=== PATIENT | female | born 1960 | race Caucasian/White ===

== ENCOUNTER → 2020-01-08 09:11 | Outpatient (BNVA) | payer OTHER, SELFPAY | PROVIDERS: PCP Internal Medicine; Referring Provider Internal Medicine; Visit Provider Surgery | DX: Z48.817 Encounter for surgical aftercare following surgery on the skin and subcutaneous tissue (principal); Z48.02 Encounter for removal of sutures | CPT/HCPCS: 99212 ==

== ENCOUNTER → 2020-01-11 15:03 | Outpatient (BNVA) | payer OTHER, SELFPAY | PROVIDERS: PCP Internal Medicine; Visit Provider Physician Assistant | DX: Z48.817 Encounter for surgical aftercare following surgery on the skin and subcutaneous tissue (principal) | CPT/HCPCS: 99212 ==

== ENCOUNTER → 2020-01-17 15:37 | Outpatient (BNVA) | payer OTHER, SELFPAY | PROVIDERS: PCP Internal Medicine; Visit Provider Surgery | DX: K59.00 Constipation, unspecified (principal); Z90.3 Acquired absence of stomach [part of]; Z98.84 Bariatric surgery status; Z71.3 Dietary counseling and surveillance | CPT/HCPCS: 99214 ==

== ENCOUNTER 2020-02-05 11:40 | Outpatient (REF) | payer OTHER, SELFPAY | END 2020-02-05 11:41 | disposition home or self-care (01) | LOC: HO.WFDLDS 11:40 | PROVIDERS: Visit Provider Internal Medicine | DX: Z20.828 Contact with and (suspected) exposure to other viral communicable diseases (principal) | CPT/HCPCS: 0241U; C9803; U0003 ==

== ENCOUNTER → 2020-03-11 08:07 | Outpatient (BNVA) | payer OTHER, SELFPAY | PROVIDERS: PCP Internal Medicine; Referring Provider Internal Medicine; Visit Provider Physician Assistant | DX: K91.2 Postsurgical malabsorption, not elsewhere classified (principal); Z90.3 Acquired absence of stomach [part of]; Z98.84 Bariatric surgery status | CPT/HCPCS: Q3014 ==

== ENCOUNTER → 2020-04-14 08:16 | Outpatient (BNVA) | payer OTHER, SELFPAY | PROVIDERS: PCP Internal Medicine; Visit Provider Dietitian, Registered ==

== ENCOUNTER 2020-04-21 10:59 | Outpatient (REF) | payer OTHER, SELFPAY ==
[2020-04-21 13:53] LABS: MANUAL DIFF FLAG NO
[2020-04-21 13:57] LABS: Basophils Percent Auto 0.5 % (0-2); Eosinophils Absolute Auto 0.2 X10*3/uL (0.0-0.4); Eosinophils Percent Auto 3.5 % (0-4); Hematocrit 38.2 % (37-47); Hemoglobin 12.6 g/dl (12.0-16.0); Imm Gran Abs Auto 0.01 X10*3/uL (0.00-0.03); Imm Gran Pct Auto 0.2 % (0.0-0.4); Lymphocytes Absolute Auto 2.1 X10*3/uL (1.2-4.9); Lymphocytes Percent Auto 36.7 % (20-40); Mean Corpuscular Hemoglobin 31.9 pg (27.0-33.0); Mean Corpuscular Volume 96.7 fL (80-98); Mean Platelet Volume 10.9 fL (9.4-12.3); Monocytes Absolute Auto 0.5 X10*3/uL (0.1-1.2); Monocytes Percent Auto 8.5 % (2-11); Neutrophils Absolute Auto 2.9 X10*3/uL (2.0-8.3); Neutrophils Percent Auto 50.6 % (45-73); Platelet Count 190 X10*3/uL (160-400); Red Blood Count 3.95 X10*6/uL (4.20-5.50); Red Cell Distribution Width 12.2 % (11.0-16.0); White Blood Count 5.8 X10*3/uL (4.8-10.8)
[2020-04-21 14:14] LABS: Estimated Average Glucose 154 mg/dL
[2020-04-21 14:31] LABS: Alanine Aminotransferase 22 U/L (0-31); Albumin Level 3.8 g/dL (3.5-5.0); Alkaline Phosphatase 53 U/L (39-117); Anion Gap 12 (12-20); Aspartate Amino Transferase 21 U/L (5-31); Bilirubin Total 0.4 mg/dL (0.0-1.0); Blood Urea Nitrogen 17 mg/dL (9-16); C Reactive Protein 0.04 mg/dL (< or = 0.50); Calcium 9.1 mg/dL (8.4-10.2); Carbon Dioxide 28 mmol/L (22-29); Chloride 108 mmol/L (96-108); Cholesterol 160 mg/dL; Estimated Glomerular Filt Rate > 60; Glucose Fasting 153 mg/dL (60-99); HDL Cholesterol 73 mg/dL; Iron 97 mcg/dL (30-160); LDL Cholesterol Calculated 76 mg/dl; Percent Iron Saturation 32 % (15-50); Potassium 4.1 mmol/l (3.3-5.1); Sodium 144 mmol/L (135-145); Total Iron Binding Capacity 301 mcg/dL (228-428); Total Protein 6.2 g/dL (6.5-8.0); Triglycerides 56 mg/dL; Unsaturated Iron Binding 204 ug/dL
[2020-04-21 14:34] LABS: Ferritin 64 ng/mL (10-250); Vitamin D 25-OH Total 56.1 ng/mL (>30)
[2020-04-21 15:09] LABS: Folate > 20.0 ng/mL (> or = 4.0); Vitamin B12 933 pg/mL (200-900)
[2020-04-22 17:52] LABS: Insulin Level Total 3.3 uIU/mL
[2020-04-23 11:32] LABS: Calcium (PTHI) 9.3 mg/dL (8.6-10.4); PTHI 40 pg/mL (14-64)
[2020-04-25 00:17] LABS: Zinc 84 mcg/dL (60-130)
[2020-04-25 10:07] LABS: Vitamin B1 17 nmol/L (8-30)
[2020-04-25 23:56] LABS: Vitamin A 39 mcg/dL (38-98)
== END 2020-04-21 11:00 | disposition home or self-care (01) ==
LOC: HO.LAB 10:59
PROVIDERS: PCP Internal Medicine; Visit Provider Physician Assistant
DX: Z01.419 Encounter for gynecological examination (general) (routine) without abnormal findings (principal); E66.01 Morbid (severe) obesity due to excess calories; K91.2 Postsurgical malabsorption, not elsewhere classified; Z98.84 Bariatric surgery status; Z90.3 Acquired absence of stomach [part of]
CPT/HCPCS: 36415; 80053; 80061; 82306; 82607; 82728; 82746; 83036; 83525; 83540; 83970; 84425; 84443; 84590; 84630; 85025; 86140

== ENCOUNTER → 2020-04-22 08:08 | Outpatient (BNVA) | payer OTHER, SELFPAY | PROVIDERS: PCP Internal Medicine; Visit Provider Dietitian, Registered ==

== ENCOUNTER → 2020-05-23 08:13 | Outpatient (BNVA) | payer OTHER, SELFPAY | PROVIDERS: PCP Internal Medicine; Visit Provider Dietitian, Registered ==

== ENCOUNTER → 2020-06-24 09:57 | Outpatient (BNVA) | payer OTHER, SELFPAY | PROVIDERS: PCP Internal Medicine; Visit Provider Internal Medicine | DX: K91.2 Postsurgical malabsorption, not elsewhere classified (principal); Z90.3 Acquired absence of stomach [part of]; Z98.84 Bariatric surgery status; I25.10 Atherosclerotic heart disease of native coronary artery without angina pectoris; I10 Essential (primary) hypertension; E11.8 Type 2 diabetes mellitus with unspecified complications; R94.09 Abnormal results of other function studies of central nervous system | CPT/HCPCS: 99212 ==

== ENCOUNTER → 2020-07-22 11:24 | Outpatient (BNVA) | payer OTHER, SELFPAY | PROVIDERS: PCP Internal Medicine; Visit Provider Dietitian, Registered | DX: Z98.84 Bariatric surgery status (principal) | CPT/HCPCS: 97803 ==

== ENCOUNTER → 2020-08-05 13:52 | Outpatient (BNVA) | payer OTHER, SELFPAY | PROVIDERS: PCP Internal Medicine; Visit Provider Physician Assistant | DX: K91.2 Postsurgical malabsorption, not elsewhere classified (principal); Z90.3 Acquired absence of stomach [part of]; Z98.84 Bariatric surgery status | CPT/HCPCS: 99212 ==

== ENCOUNTER → 2020-08-18 10:51 | Outpatient (BNVA) | payer OTHER, SELFPAY | PROVIDERS: PCP Internal Medicine; Visit Provider Dietitian, Registered | DX: Z90.3 Acquired absence of stomach [part of] (principal) | CPT/HCPCS: 97803 ==

== ENCOUNTER → 2021-05-07 10:18 | Outpatient (BNVA) | payer OTHER, SELFPAY | PROVIDERS: PCP Internal Medicine; Visit Provider Physician Assistant Surgical | DX: Z13.89 Encounter for screening for other disorder (principal) ==

== ENCOUNTER → 2021-07-07 09:31 | Outpatient (BNVA) | payer OTHER, SELFPAY | PROVIDERS: PCP Internal Medicine; Visit Provider Internal Medicine | DX: I25.10 Atherosclerotic heart disease of native coronary artery without angina pectoris (principal); I10 Essential (primary) hypertension; R94.09 Abnormal results of other function studies of central nervous system; E11.8 Type 2 diabetes mellitus with unspecified complications; Z98.84 Bariatric surgery status | CPT/HCPCS: 93005; 99212 ==

== ENCOUNTER 2021-10-02 23:00 | Emergency (ER) | payer OTHER, SELFPAY ==
--- NOTE | ~2021-10-02 | CT_ITS ---
EXAMINATION: CT HEAD WITHOUT CONTRAST CT CERVICAL SPINE WITHOUT CONTRAST CLINICAL INFORMATION: Fall. COMPARISON: None. TECHNIQUE: Imaging was performed from the skull base to vertex without intravenous administration of contrast. In addition, helical noncontrast CT imaging was acquired through the cervical spine and source images were reviewed along with axial reconstructions and sagittal and coronal MPRs. [This CT examination was performed using dose optimization techniques as appropriate, variously including the following: *Automated exposure control *Adjustment of mA and/or kV according to patient size (this includes techniques or standardized protocols for targeted exams where dose is matched to indication/reason for exam; i.e. extremities or head) *Use of iterative reconstruction technique] DLP: 888 mGy-cm FINDINGS: HEAD: No intracranial mass, hemorrhage, or midline shift is visualized. The ventricles and sulci are proportional. No extra-axial collections are identified. The paranasal sinuses and mastoid air cells are well aerated. CERVICAL SPINE: There is no evidence of acute cervical spine fracture. Vertebral bodies remain normal in height. Cervical vertebrae have normal alignment. There is multilevel degenerative spondylosis of the cervical spine with disc height narrowing and endplate spurs and facet joint arthrosis No pre- or paravertebral soft tissue abnormality is identified. Limited assessment of the lung apices is unremarkable. CT/CT head/brain wo con IMPRESSION: 1. No acute intracranial pathology. 2. No CT evidence of acute cervical spine fracture or traumatic subluxation
--- NOTE | ~2021-10-02 | CT_ITS ---
EXAMINATION: CT HEAD WITHOUT CONTRAST CT CERVICAL SPINE WITHOUT CONTRAST CLINICAL INFORMATION: Fall. COMPARISON: None. TECHNIQUE: Imaging was performed from the skull base to vertex without intravenous administration of contrast. In addition, helical noncontrast CT imaging was acquired through the cervical spine and source images were reviewed along with axial reconstructions and sagittal and coronal MPRs. [This CT examination was performed using dose optimization techniques as appropriate, variously including the following: *Automated exposure control *Adjustment of mA and/or kV according to patient size (this includes techniques or standardized protocols for targeted exams where dose is matched to indication/reason for exam; i.e. extremities or head) *Use of iterative reconstruction technique] DLP: 888 mGy-cm FINDINGS: HEAD: No intracranial mass, hemorrhage, or midline shift is visualized. The ventricles and sulci are proportional. No extra-axial collections are identified. The paranasal sinuses and mastoid air cells are well aerated. CERVICAL SPINE: There is no evidence of acute cervical spine fracture. Vertebral bodies remain normal in height. Cervical vertebrae have normal alignment. There is multilevel degenerative spondylosis of the cervical spine with disc height narrowing and endplate spurs and facet joint arthrosis No pre- or paravertebral soft tissue abnormality is identified. Limited assessment of the lung apices is unremarkable. CT/CT cervical spine wo con IMPRESSION: 1. No acute intracranial pathology. 2. No CT evidence of acute cervical spine fracture or traumatic subluxation
[2021-10-02 23:03] VITALS: BP 108/72; BP 121/53; PULSE 66; PULSE 71; RESP 22; TEMP 36.6; O2SAT 98; BMI 24.5
--- NOTE | 2021-10-02 23:05 | ED.FALL ---
HPI - Fall General Chief Complaint: Fall Stated Complaint: fall Time Seen by Provider: 10/02/21 23:04 Source: patient Mode of arrival: ambulatory Limitations: no limitations History of Present Illness HPI Narrative: Patient legally blind was walking outside lost balance from walking on uneven sidewalk landing on her back of the head and the left side of forehead came here with laceration on the L frontal area. No loss of consciousness no other injuries Related Data Home Medications Medication Instructions Recorded Confirmed albuterol sulfate 90 mcg/actuation 2 puff inhalation Q6H PRN 01/08/20 07/07/21 aerosol inhaler (ProAir HFA) biotin 10,000 mcg capsule mcg PO 01/08/20 07/07/21 calcium carbonate 600 mg-vitamin cap PO 01/08/20 07/07/21 D3 12.5 mcg (500 unit) capsule (Calcium 600 with Vitamin D3) ketorolac 0.5 % eye drops 1 drp ophthalmic (eye) QID 01/08/20 07/07/21 melatonin 10 mg capsule 10 mg PO BEDTIME PRN 01/08/20 07/07/21 montelukast 10 mg tablet 10 mg PO BEDTIME 01/08/20 07/07/21 multivitamin 1 tab PO DAILY 01/08/20 07/07/21 omeprazole 40 mg capsule,delayed 40 mg PO DAILY 01/08/20 07/07/21 release propranolol 10 mg tablet 10 mg PO BID 01/08/20 07/07/21 trazodone 50 mg tablet 25 mg PO DAILY 06/24/20 07/07/21 Previous Rx's Medication Instructions Recorded food supplemt, lactose-reduced See Rx Instructions PO BID #19,800 08/29/20 (Ensure MAX Protein) mL rosuvastatin 40 mg tablet 40 mg PO DAILY #90 tabs 04/03/21 amlodipine 2.5 mg tablet (Norvasc) 2.5 mg PO DAILY #90 tabs 07/07/21 Allergies Allergy/AdvReac Type Severity Reaction Status Date / Time Opioids - Morphine Analogues Allergy Severe ANAPHYLAXIS Verified 07/07/21 09:45 [OPIOIDS - MORPHINE ANALOGUES] iodine [IODINE] Allergy Intermediate RASH Verified 07/07/21 09:45 dulaglutide [Trulicity] Allergy Unknown Unknown Verified 07/07/21 09:45 hydrocodone [Vicodin] Allergy Unknown Unknown Verified 07/07/21 09:45 meperidine [Demerol] Allergy Unknown Unknown Verified 07/07/21 09:45 oxycodone [Percocet] Allergy Unknown Unknown Verified 07/07/21 09:45 povidone-iodine [Betadine] Allergy Unknown Unknown Verified 07/07/21 09:45 Penicillins [PENICILLINS] AdvReac Severe VOMITING Verified 07/07/21 09:45 Review of Systems Review of Systems: Yes all other systems are reviewed and are negative [facility] Past Medical History Medical History Abnormal tilt table test Arrhythmia Asthma Atherosclerotic cardiovascular disease Blindness of right eye Essential hypertension History of ectopic History of sleep apnea HTN (hypertension) Infertility Intestinal malabsorption following gastrectomy Panic attacks Type 2 diabetes mellitus Type 2 diabetes mellitus with unspecified complications Urinary, incontinence, stress female Surgical History H/O ovarian cystectomy History of excision of pilonidal cyst History of foot surgery History of nasal septoplasty History of repair of hiatal hernia History of sleeve gastrectomy History of varicose vein stripping Hx of excision of dermoid cyst S/P laparoscopic sleeve gastrectomy Family History Family History Father Diabetes Lymphoma Mother Diabetes Dementia Heart disease Legally blind Brother Diabetes Brother No problems noted. Sister Diabetes Son Asthma Spina bifida aperta of cervical spine Social History Social History Alcohol intake: current Alcohol intake frequency: holidays/special occasions only Patient Tobacco Use Status: Never used Tobacco Use of substances other than those prescribed or required for medical reasons: No Advance Directives: No Advance Directives Information Provided: No Physical Exam Vital Signs: Vital Signs: Last Vital Signs Temp 97.8 F 10/02/21 23:07 Pulse 67 10/02/21 23:07 Resp 14 10/02/21 23:07 BP 121/53 L 10/02/21 23:07 Pulse Ox 99 10/02/21 23:07 O2 Del Method 10/02/21 23:07 BMI result Body Mass Index 24.5 Appearance: Alert. No acute distress. Eyes: Legally blind ENT: Pharynx normal. Oral Mucosa moist Neck: Normal inspection. Neck supple. No midline tenderness cervical collar in place CVS: Normal heart rate and rhythm. Pulses normal. Respiratory: No respiratory distress. Equal air entry bilateral, no wheezing/rales/rhonchi Abdomen: Soft and nontender. Bowel sounds are present, no mass palpable, no CVA tenderness Skin: Skin warm and dry. Normal skin color. Normal skin turgor. Extremities: No lower extremity edema. No calf tenderness Neuro: Oriented X 3. No motor deficit. No sensory deficit. HEENT: Face images: 1. 4 cm laceration left forehead Procedures Laceration Laceration 1: Site: face (Forehead) Side (If applicable): left Size (cm): 4 Description: linear Depth: simple, single layer Local Anesthetic: lidocaine 1% Amount of anesthesia used (mL): 2 Skin layer closed with: nylon Size (cm): 5-0 Number of sutures: 7 Technique: simple, interrupted MDM - Fall MDM Narrative Medical decision making narrative: Patient status post mechanical fall head CT and C-spine negative came with superficial laceration left forehead which was sutured patient ambulate in the ER where discharge patient Discharge Plan Discharge Clinical Impression: Fall, Laceration of face Patient Disposition: Home, Self-Care Instructions: Laceration (ED), Fall Prevention (ED) Additional Instructions: Local care as advised Suture removal in 5-7 days Prescriptions: No Action Ensure MAX Protein Liquid See Rx Instructions PO BID Qty: 57320 6RF Rx Instructions: Drink 1 shake PO 2 times a day; rosuvastatin 40 mg tablet 40 mg PO DAILY Qty: 90 3RF trazodone 50 mg tablet 25 mg PO DAILY amlodipine [Norvasc] 2.5 mg tablet 2.5 mg PO DAILY Qty: 90 3RF montelukast 10 mg tablet 10 mg PO BEDTIME albuterol sulfate [ProAir HFA] 90 mcg/actuation HFA aerosol inhaler 2 puff inhalation Q6H PRN omeprazole 40 mg capsule,delayed release(DR/EC) 40 mg PO DAILY melatonin 10 mg capsule 10 mg PO BEDTIME PRN multivitamin Tablet 1 tab PO DAILY calcium carbonate-vitamin D3 [Calcium 600 with Vitamin D3] 600 mg(1,500mg) -500 unit capsule PO propranolol 10 mg tablet 10 mg PO BID biotin 10,000 mcg capsule PO ketorolac 0.5 % drops 1 drp ophthalmic (eye) QID
[2021-10-02 23:07] VITALS: BP 121/53; PULSE 67; RESP 14; TEMP 36.6; O2SAT 99
--- NOTE | 2021-10-02 23:14 | PC.NURSE ---
Pt came in with EMS after falling on uneven pavement. Pt is visually impaired at baseline and stated she always has a little bit of dizziness. A 2 laceration is noted on the forehead with bleeding controlled, there were napkins saturated with blood wrapped to her head. EMS applied a C-Collar on scene. Pt is A&Ox4 with GCS of 15. IV inserted, nursing resident applied, and pt is in CT scan at this moment.
[2021-10-03] MEDS: Lidocaine HCl 1 % MPF 5 ML VIAL INFILTRATI (00:26)
--- NOTE | 2021-10-03 00:36 | PC.NURSE ---
Pt laceration sutured by , 7 sutures total. Bacitracin and bandaid applied, care instructions provided.
[2021-10-03 00:49] VITALS: BP 148/88; PULSE 65; RESP 12
== END 2021-10-03 01:01 | disposition home or self-care (01) ==
PROVIDERS: Emergency Provider Internal Medicine
DX: S01.81XA Laceration without foreign body of other part of head, initial encounter (principal); W01.198A Fall on same level from slipping, tripping and stumbling with subsequent striking against other object, initial encounter; H54.8 Legal blindness, as defined in USA; Y93.01 Activity, walking, marching and hiking; Y92.480 Sidewalk as the place of occurrence of the external cause; Y99.9 Unspecified external cause status
CPT/HCPCS: 12013; 70450; 72125; 99284

== ENCOUNTER → 2022-09-01 12:21 | Outpatient (BNVA) | payer OTHER, SELFPAY | PROVIDERS: Visit Provider Internal Medicine | DX: I25.10 Atherosclerotic heart disease of native coronary artery without angina pectoris (principal); I10 Essential (primary) hypertension; E11.8 Type 2 diabetes mellitus with unspecified complications; R94.09 Abnormal results of other function studies of central nervous system; Z98.84 Bariatric surgery status | CPT/HCPCS: 93005; 99212 ==

== ENCOUNTER 2023-07-26 10:14 | Outpatient (REF) | payer OTHER, SELFPAY ==
[2023-07-26 12:35] LABS: Anion Gap 11 (12-20); Blood Urea Nitrogen 17 mg/dL (9-16); Calcium 9.4 mg/dL (8.4-10.2); Carbon Dioxide 29 mmol/L (22-29); Chloride 106 mmol/L (96-108); Estimated Glomerular Filt Rate > 60; Glucose Random 125 mg/dL (60-115); Potassium 3.9 mmol/L (3.3-5.1); Sodium 142 mmol/L (135-145)
== END 2023-07-26 10:15 | disposition home or self-care (01) ==
LOC: HO.WFDLDS 10:14
PROVIDERS: Visit Provider Nurse Practitioner Family
DX: I10 Essential (primary) hypertension (principal)
CPT/HCPCS: 36415; 80048

== ENCOUNTER 2023-07-28 13:34 | Outpatient (AMB) | payer OTHER, SELFPAY ==
[2023-07-28 14:00] VITALS: BP 120/60; PULSE 58; O2SAT 98; BMI 30.7
--- NOTE | 2023-07-28 14:00 | A.OFFVIS_ITS ---
Vital Signs 07/28/23 14:00 Height 5 ft 1 in Weight 162 lb 4.163 oz BMI 30.7 BP 120/60 Blood Pressure Location Lt brachial Position Sitting Pulse 58 Pulse Source Pulse Oximeter Pulse Oximetry (%) 98 Oxygen Delivery Method Room Air Intake Visit Reasons: Hypertension Intake Note: pt is concern for BP no chest pain Allergies Opioids - Morphine Analogues [OPIOIDS - MORPHINE ANALOGUES] Allergy (Severe, Verified 09/01/22 12:51) ANAPHYLAXIS iodine [IODINE] Allergy (Intermediate, Verified 09/01/22 12:51) RASH dulaglutide [Trulicity] Allergy (Unknown, Verified 09/01/22 12:51) Unknown hydrocodone [Vicodin] Allergy (Unknown, Verified 09/01/22 12:51) Unknown meperidine [Demerol] Allergy (Unknown, Verified 09/01/22 12:51) Unknown oxycodone [Percocet] Allergy (Unknown, Verified 09/01/22 12:51) Unknown povidone-iodine [Betadine] Allergy (Unknown, Verified 09/01/22 12:51) Unknown Penicillins [PENICILLINS] Adverse Reaction (Severe, Verified 09/01/22 12:51) VOMITING Medication List - Last Reviewed 07/28/23 by Martine Dickens albuterol sulfate 90 mcg/actuation (ProAir HFA) 2 puffs inhalation Q6H PRN amlodipine 5 mg PO DAILY biotin mcg PO calcium carbonate-vitamin D3 600 mg-12.5 mcg (500 unit) (Calcium 600 with Vitamin D3) caps PO fluoxetine 10 mg PO DAILY food supplemt, lactose-reduced (Ensure MAX Protein oral liquid) Drink 1 shake PO 2 times a day; ketorolac 0.5% 1 drp ophthalmic (eye) QID losartan 50 mg PO DAILY melatonin 10 mg PO BEDTIME PRN mirabegron ER 50 mg PO DAILY montelukast 10 mg PO BEDTIME multivitamin 1 tab PO DAILY omeprazole 40 mg PO DAILY propranolol 10 mg PO ONCE rosuvastatin 40 mg PO DAILY trazodone 25 mg PO DAILY HPI Comments Details: Cheyenne returns for follow-up regarding her HTN. She reports her SBPs have been 120-180s on and off recently. She has had some left sided chest pains with left arm numbess. She reports it is a mild pain and is at rest and exertion. 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 Blindness of right eye History of ectopic Panic attacks Urinary, incontinence, stress female Infertility Asthma History of sleep apnea Arrhythmia HTN (hypertension) Type 2 diabetes mellitus Surgical History S/P laparoscopic sleeve gastrectomy History of repair of hiatal hernia History of sleeve gastrectomy History of foot surgery History of varicose vein stripping History of nasal septoplasty H/O ovarian cystectomy Hx of excision of dermoid cyst History of excision of pilonidal cyst Family History Father Diabetes Lymphoma Mother Diabetes Dementia Heart disease Legally blind Brother Diabetes Brother No problems noted. Sister Diabetes Son Asthma Spina bifida aperta of cervical spine Social History Alcohol intake: current Alcohol intake frequency: holidays/special occasions only Patient Tobacco Use Status: Never used Tobacco Review of Systems Const Denies weakness ENT Denies dizziness Card Denies chest pain, Denies chest pain with activity, Denies syncope, Denies rapid heart rate, Denies pedal edema, Denies edema, Denies leg edema, Denies lightheadedness, Denies palpitations, Denies dyspnea, Denies dyspnea on exertion and Denies orthopnea Resp Denies cough, Denies dyspnea and Denies dyspnea on exertion GI Denies hematochezia and Denies change in stool character Musc Denies abnormal gait, Denies muscle cramps, Denies muscle weakness, Denies numbness, Denies radiating pain into limb and Denies tingling Neuro Denies abnormal gait, Denies dizziness, Denies syncope, Denies numbness, Denies tingling and Denies weakness Endo Denies palpitations Physical Exam Vital Signs: Last Vital Signs Pulse 58 07/28/23 14:00 BP 120/60 07/28/23 14:00 Pulse Ox 98 07/28/23 14:00 Oxygen Delivery Method Room Air 07/28/23 14:00 BMI result Body Mass Index 30.7 Const General: healthy appearing and no acute distress Orientation/consciousness: patient oriented x3 HEENT Head: Yes normal to inspection Eyes General: appearance normal, both eyes and all related structures Neck Neck: Yes normal visual inspection Chest Chest palpation & inspection: normal inspection of the chest Resp Effort & Inspection: normal respiratory effort Auscultation: clear to auscultation bilaterally Cardio Jugular venous distension: no JVD Palpation: normal PMI Rate: regular rate Rhythm: regular rhythm Heart sounds: S1 normal heart sound present, S2 normal heart sound present, no click, no gallops, no murmurs and no rubs GI Inspection: Yes normal to inspection Palpation (GI): Soft to palpation Skin General skin exam: no rashes or lesions noted Neuro General: patient oriented x3 Extrem General: Yes normal to inspection Psych Appearance: grossly normal Office Procedures EKG Details: EKG today. Sinus Bradycardia. Rate 56 bpm. QTS 74ms. QTc 447ms. VA 138ms. [id number], Complete Assessment & Plan Assessment & Plan (1) Atherosclerotic cardiovascular disease: Code(s): I25.10 - Atherosclerotic heart disease of [place] coronary artery without angina pectoris Category: Medical Plan: On statins. Will get stress test to assess chest pains for ischemia. (2) Essential hypertension: Code(s): I10 - Essential (primary) hypertension Category: Medical Plan: Blood pressure today within range. During discussion she noticed she may have just taken her medications when she took her blood pressures. Advised to write down when she took her medication and time of blood pressure reading to evaluate if there needs to be an adjustment in medicaitons. (3) Chest pain: Code(s): R07.9 - Chest pain, unspecified Category: Medical Plan: Will get stress test. Orders: Orders CA echo transthoracic complete 07/28/23 I10 - Essential (primary) hypertension, I25.10 - Atherosclerotic heart disease of [place] coronary artery without angina pectoris, R07.9 - Chest pain, unspecified NM cardiolite stress test 07/28/23 I10 - Essential (primary) hypertension, I25.10 - Atherosclerotic heart disease of [place] coronary artery without angina pectoris, R07.9 - Chest pain, unspecified CA stress test 07/28/23 I10 - Essential (primary) hypertension, I25.10 - Atherosclerotic heart disease of [place] coronary artery without angina pectoris, R07.9 - Chest pain, unspecified Coding Level of Care Code Est Pt Level 3 (37627) Diagnoses Atherosclerotic cardiovascular disease I25.10 Essential hypertension I10 Chest pain R07.9 CPT Codes EKG - CPT: 70256-[id number], Complete ([id number])
== END 2023-07-28 14:55 | disposition home or self-care (01) ==
PROVIDERS: PCP Student in an Organized Health Care Education/Training Program; Visit Provider Nurse Practitioner
DX: I25.10 Atherosclerotic heart disease of native coronary artery without angina pectoris (principal); I10 Essential (primary) hypertension; R07.9 Chest pain, unspecified
CPT/HCPCS: 93010; 99213

== ENCOUNTER → 2023-07-28 13:34 | Outpatient (BNVA) | payer OTHER, SELFPAY | PROVIDERS: PCP Student in an Organized Health Care Education/Training Program; Visit Provider Nurse Practitioner | DX: I25.10 Atherosclerotic heart disease of native coronary artery without angina pectoris (principal); I10 Essential (primary) hypertension; R07.9 Chest pain, unspecified; R00.1 Bradycardia, unspecified | CPT/HCPCS: 93005; 99212 ==

== ENCOUNTER → 2023-08-16 12:36 | Outpatient (REF) | payer OTHER, SELFPAY ==
--- NOTE | 2023-08-16 12:38 | CA_ITS ---
Transthoracic Echocardiogram Patient (Last, First, Middle): Cheyenne Snider, Gender: Female Date of : 1960 Age: 62 Procedure Date: 08/16/2023 Procedure Type: Transthoracic Echocardiogram Location: OP Height: 154.94 cm Weight: 71.22 kg BSA: 1.70 m2 Heart Rate: bpm BP: 118 / 60 mmHg Systems Software Engineer: Referring MD: Joslyn Brito FILM SPOOLER Symptoms: R07.9 - Chest pain, unspecified Study Quality: Adequate w contrast ECG Rhythm: Sinus Conclusions: - The left ventricular systolic function is normal. The calculated ejection fraction is 69% by biplane method. - Evidence suggests grade II (moderate) diastolic dysfunction. - No obvious valvular pathology seen on this study. Findings Procedure Information Contrast agent, definity, is being given per protocol without apparent complications. Left Ventricle Normal left ventricular cavity size. There is normal left ventricular wall thickness. The left ventricular systolic function is normal. The calculated ejection fraction is 69% by biplane method. There is no evidence of regional wall motion abnormalities. Evidence suggests grade II (moderate) diastolic dysfunction. Right Ventricle Mildly increased right ventricular cavity size. There is normal right ventricular systolic function. Atria Both atria are normal in size. Aortic Valve There is a normal trileaflet aortic valve. There is no aortic valve stenosis. There is trace (trivial) aortic valve regurgitation. Mitral Valve The mitral valve appears normal. There is no mitral valve regurgitation. There is no mitral valve stenosis. Pulmonic Valve The pulmonic valve is likely normal. Tricuspid Valve There is trace tricuspid valve regurgitation. There is no evidence of pulmonary hypertension. Great Vessels The asc aorta is normal in size. Venous The inferior vena cava is normal in size and collapses greater than 50% with inspiration. Pericardium/Pleural There is no evidence of pericardial effusion. Prior Study Comparison Changes noted compared to prior study dated: 10/26/2019. Diastolic dysfunction noted. Recommendations, Care & Conclusions No obvious valvular pathology seen on this study. Measurements 2D Linear Measurements IVSd: 1.02 0.6-0.9/0.6-1.0 cm LVIDd: 4.63 3.9-5.3/4.2-5.9 cm LVIDd Index: 2.72 2.4-3.2/2.2-3.1 cm/m2 LVIDs: 3.04 2.0-3.6 cm LVPWd: 0.90 0.7-1.1 cm Ao Root: 3.30 2.1-3.5 cm LA Diam: 4.00 2.7-3.8/3.0-4.0 cm LAIDs Index: 2.35 1.5-2.3 cm/m2 LV Mass: 188.36 67-162/88-224 g LV Mass Index: 110.80 43-95/49-115 g/m2 LVOT Diam: 2.00 3.0+(-)1.3 cm 2D Systolic Function EF 4C: 67.20 >55% EF 2C: 68.30 >55% EF BiP: 68.50 >55% Mitral Valve MV Pk E: 1.10 MV PK A: 0.63 MV Decel Time: 197.00 E/A: 1.70 E'Lateral: 7.83 E'Medial: 4.90 E/E' Med: 22.40 E/E' Lat: 14.00 PHT: 58.00 MVA PHT: 3.79 Decel Mclean: 5.59 Aortic Valve AoV Pk Maximo: 1.48 AoV Mn Maximo: 0.92 AoV VTI: 0.37 AoV Pk Grad: 9.00 Aov Mn Grad: 4.00 NOAM Cont.VTI: 2.04 LVOT LVOT Pk Maximo: 0.95 LVOT Mn Maximo: 0.60 LVOT VTI: 0.24 LVOT Pk Grad: 4.00 LVOT Mn Grad: 2.00 LVOT Diam: 2.00 LVOT Area: 3.14 Diastolic Function MV Pk E: 1.10 MV Pk A: 0.63 E/A: 1.70 E'Medial: 4.90 E/E' Med: 22.40 E' Laterial: 7.83 E/E' Lat: 14.00 Right Ventricle TAPSE (mm): 30.90 TVS' Maximo: 13.30 Tricuspid Valve TR Pk Maximo: 2.22 TR Pk Grad: 20.00 Great Vessels Aorta Ao Root-2D: 3.30 2.0-3.7 cm Ao Asc: 3.20 2.1-3.4 cm Pulmonary Valve PV Pk Maximo: 0.91 Peak PV Grad: 3.00 Updated in Other Vendor System with Status of Final Juan Antonio Wilson MD electronically signed on 08/17/2023 12:01:11 PM with status of Final
== END ==
LOC: HO.CARD 12:36
PROVIDERS: PCP Student in an Organized Health Care Education/Training Program; Visit Provider Nurse Practitioner
DX: R07.9 Chest pain, unspecified (principal); I25.10 Atherosclerotic heart disease of native coronary artery without angina pectoris; I10 Essential (primary) hypertension
CPT/HCPCS: 93306; Q9957

== ENCOUNTER → 2023-08-16 12:38 | Outpatient (BNV) | payer OTHER, SELFPAY | PROVIDERS: PCP Student in an Organized Health Care Education/Training Program; Visit Provider Internal Medicine | DX: R07.9 Chest pain, unspecified (principal); I51.9 Heart disease, unspecified | CPT/HCPCS: 93306 ==

== ENCOUNTER 2023-12-02 21:33 | Emergency (ER) | payer OTHER, SELFPAY ==
[2023-12-02 21:43] VITALS: BP 121/57; BP 154/76; PULSE 65; PULSE 86; RESP 18; TEMP 36.4; O2SAT 97; BMI 31.2
--- NOTE | 2023-12-02 21:49 | MHC.EDTECH ---
PT HAS TWO BELONGINGS BAGS IN POD LAUNDRY CLOSET. ONE RED SUITCASE, ONE PATIENT BELONGING BAG.
--- NOTE | 2023-12-03 00:03 | ED_ITS ---
HPI - Psych General Chief Complaint: Psychiatric Symptoms Stated Complaint: sect.12, mother recently passed Time Seen by Provider: 12/02/23 22:10 Source: EMS History of Present Illness ED Provider: Kandace Roe PA-C HPI Narrative: 63-year-old morbidly obese female with history of hypertension, diabetes and COPD presents with SI. Patient recently lost her mother 3 weeks ago, since she has been binge drinking. She has also been exhibiting high-risk behaviors, including driving while under the influence with children in the vehicle. To note, the patient is also legally blind in the right eye. Patient was seen in the community by the behavioral health team, she presents to our emergency department as a section 12. She will be a bed search. Related Data Home Medications ?Medication ?Instructions ?Recorded ?Confirmed albuterol sulfate 90 mcg/actuation 2 puff inhalation Q6H PRN 01/08/20 09/01/22 aerosol inhaler (ProAir HFA) biotin 10,000 mcg capsule mcg PO 01/08/20 09/01/22 calcium carbonate 600 mg-vitamin cap PO 01/08/20 09/01/22 D3 12.5 mcg (500 unit) capsule (Calcium 600 with Vitamin D3) ketorolac 0.5 % eye drops 1 drp ophthalmic (eye) QID 01/08/20 09/01/22 melatonin 10 mg capsule 10 mg PO BEDTIME PRN 01/08/20 09/01/22 montelukast 10 mg tablet 10 mg PO BEDTIME 01/08/20 09/01/22 multivitamin 1 tab PO DAILY 01/08/20 09/01/22 omeprazole 40 mg capsule,delayed 40 mg PO DAILY 01/08/20 09/01/22 release trazodone 50 mg tablet 25 mg PO DAILY 06/24/20 09/01/22 amlodipine 5 mg tablet 5 mg PO DAILY 09/01/22 09/01/22 mirabegron 50 mg tablet,extended 50 mg PO DAILY 07/14/23 release 24 hr fluoxetine 10 mg capsule 10 mg PO DAILY 07/28/23 Previous Rx's ?Medication ?Instructions ?Recorded food supplemt, lactose-reduced See Rx Instructions PO BID #19,800 08/29/20 (Ensure MAX Protein oral liquid) mL rosuvastatin 40 mg tablet 40 mg PO DAILY #90 tabs 04/03/21 propranolol 10 mg tablet 10 mg PO BID 90 days #180 tabs 08/18/23 losartan 50 mg tablet 50 mg PO DAILY #90 tabs 11/22/23 Allergies Allergy/AdvReac Type Severity Reaction Status Date / Time Opioids - Morphine Analogues Allergy Severe ANAPHYLAXIS Verified 12/02/23 21:51 [OPIOIDS - MORPHINE ANALOGUES] iodine [IODINE] Allergy Intermediate RASH Verified 12/02/23 21:51 dulaglutide [Trulicity] Allergy Unknown Unknown Verified 12/02/23 21:51 hydrocodone [Vicodin] Allergy Unknown Unknown Verified 12/02/23 21:51 meperidine [Demerol] Allergy Unknown Unknown Verified 12/02/23 21:51 oxycodone [Percocet] Allergy Unknown Unknown Verified 12/02/23 21:51 povidone-iodine [Betadine] Allergy Unknown Unknown Verified 12/02/23 21:51 Penicillins [PENICILLINS] AdvReac Severe VOMITING Verified 12/02/23 21:51 Review of Systems Review of Systems: Yes all other systems are reviewed and are negative FOR[facility]LY [facility] Past Medical History Attestation statement: The following information was validated with the patient. Medical History Chest pain Abnormal tilt table test Essential hypertension Type 2 diabetes mellitus with unspecified complications Atherosclerotic cardiovascular disease Intestinal malabsorption following gastrectomy Blindness of right eye History of ectopic Panic attacks Urinary, incontinence, stress female Infertility Asthma History of sleep apnea Arrhythmia HTN (hypertension) Type 2 diabetes mellitus Surgical History S/P laparoscopic sleeve gastrectomy History of repair of hiatal hernia History of sleeve gastrectomy History of foot surgery History of varicose vein stripping History of nasal septoplasty H/O ovarian cystectomy Hx of excision of dermoid cyst History of excision of pilonidal cyst Family History Family History Father Diabetes Lymphoma Mother Diabetes Dementia Heart disease Legally blind Brother Diabetes Brother No problems noted. Sister Diabetes Son Asthma Spina bifida aperta of cervical spine Social History Social History Alcohol intake: current Alcohol intake frequency: holidays/special occasions only Patient Tobacco Use Status: Never used Tobacco Advance Directives: No Advance Directives Information Provided: No Do you have a plan to hurt others: No Plan Physical Exam Vital Signs: Vital Signs: Last Vital Signs Temp 97.6 F 12/02/23 21:43 Pulse 65 12/02/23 21:43 Resp 18 12/02/23 21:43 BP 121/57 L 12/02/23 21:43 Pulse Ox 97 12/02/23 21:43 O2 Del Method Room Air 12/02/23 21:43 BMI result Body Mass Index 31.2 Const: Other: Awake Orientation/consciousness: patient oriented x3 Resp: Effort & Inspection: normal respiratory effort Cardio: Other: Normal peripheral perfusion Skin: Other: Warm dry no rash Neuro: Other: Legally blind right eye General: patient oriented x3 and no focal motor deficits Psych: Other: Cooperative in the ER Medical Decision Making Medical Decision Making MDM Narrative: 63-year-old morbidly obese female with history of hypertension, diabetes and COPD presents with SI. Patient recently lost her mother 3 weeks ago, since she has been binge drinking. She has also been exhibiting high-risk behaviors, including driving while under the influence with children in the vehicle. To n otruthy, the patient is also legally blind in the right eye. Patient was seen in the community by the behavioral health team, she presents to our emergency department as a section 12. She will be a bed search. Problem: Diabetes History: Per EMS I have considered the following differential diagnoses: SI, HI, drug/alcohol intoxication, decompensated psychiatric illness Plan: Patient presents as a section 12, she will be a bed search. Screening basic labs, serum Ethanol and U tox. I have independently reviewed the following tests: Labs: No leukocytosis, not anemic, no electrolyte abnormality, ethanol and drug screen pending Discharge Plan Discharge Clinical Impression: Suicidal ideation Patient Disposition: Still a Patient Prescriptions: No Action Ensure MAX Protein Liquid See Rx Instructions PO BID Qty: 6RF Rx Instructions: Drink 1 shake PO 2 times a day; rosuvastatin 40 mg tablet 40 mg PO DAILY Qty: 90 3RF mirabegron 50 mg tablet extended release 24 hr 50 mg PO DAILY propranolol 10 mg tablet 10 mg PO BID 90 Days Qty: 180 1RF losartan 50 mg tablet 50 mg PO DAILY Qty: 90 3RF trazodone 50 mg tablet 25 mg PO DAILY montelukast 10 mg tablet 10 mg PO BEDTIME albuterol sulfate [ProAir HFA] 90 mcg/actuation HFA aerosol inhaler 2 puff inhalation Q6H PRN omeprazole 40 mg capsule,delayed release(DR/EC) 40 mg PO DAILY melatonin 10 mg capsule 10 mg PO BEDTIME PRN multivitamin Tablet 1 tab PO DAILY calcium carbonate-vitamin D3 [Calcium 600 with Vitamin D3] 600 mg(1,500mg) - 500 unit capsule PO biotin 10,000 mcg capsule PO ketorolac 0.5 % drops 1 drp ophthalmic (eye) QID amlodipine 5 mg tablet 5 mg PO DAILY fluoxetine 10 mg capsule 10 mg PO DAILY Interventions: [place]-Suicide Risk Severity Scale Last Done: 12/02/23 21:56 Print Language: Azeri
--- NOTE | 2023-12-03 00:08 | PC.NURSE ---
Took report from off-going RN at 2300 hrs. Pt is a 63 y/o female who is here via EMS on a section 12. Pt is calm and cooperative, easily arousable with verbal stimulli. Mothr recently , has been endorsing poor choices, recent DUI with children in the car. Has been evaluated by N and is currently a bed search. Will continue to monitor for changes.
[2023-12-03 03:01] LABS: MANUAL DIFF FLAG NO
[2023-12-03 03:04] LABS: Basophils Absolute Auto 0.1 X10*3/uL (0.0-0.2); Basophils Percent Auto 0.7 % (0-2); Eosinophils Absolute Auto 0.3 X10*3/uL (0.0-0.4); Eosinophils Percent Auto 3.6 % (0-4); Hematocrit 41.5 % (37.0-47.0); Hemoglobin 14.9 g/dl (12.0-16.0); Imm Gran Abs Auto 0.03 X10*3/uL (0.00-0.03); Imm Gran Pct Auto 0.4 % (0.0-0.4); Lymphocytes Absolute Auto 3.5 X10*3/uL (1.2-4.9); Lymphocytes Percent Auto 47.3 % (20-40); Mean Corpuscular HGB Conc 35.9 g/dl (31.0-35.0); Mean Corpuscular Hemoglobin 33.9 pg (27.0-33.0); Mean Corpuscular Volume 94.3 fL (80.0-98.0); Mean Platelet Volume 9.7 fL (9.4-12.3); Monocytes Absolute Auto 0.6 X10*3/uL (0.1-1.2); Monocytes Percent Auto 8.6 % (2-11); Neutrophils Percent Auto 39.4 % (45-73); Platelet Count 245 X10*3/uL (160-400); Red Cell Distribution Width 13.3 % (11.0-16.0); White Blood Count 7.5 X10*3/uL (4.8-10.8)
[2023-12-03 03:16] LABS: Alanine Aminotransferase 20 U/L (0-31); Albumin Level 3.8 g/dL (3.5-5.0); Alkaline Phosphatase 53 U/L (39-117); Anion Gap 17 (12-20); Aspartate Amino Transferase 31 U/L (5-31); Bilirubin Total 0.3 mg/dL (0.0-1.0); Blood Urea Nitrogen 8 mg/dL (9-16); Calcium 9.8 mg/dL (8.4-10.2); Carbon Dioxide 24 mmol/L (22-29); Chloride 105 mmol/L (96-108); Creatinine Clr Calc Pharmacy 69.2; Estimated Glomerular Filt Rate > 60; Ethanol 56 mg/dL; Glucose Random 103 mg/dL (60-115); Potassium 3.9 mmol/L (3.3-5.1); Sodium 142 mmol/L (135-145); Total Protein 7.1 g/dL (6.5-8.0)
[2023-12-03 03:17] LABS: Amphetamine Screen Urine Not Detected (Not Detect); Barbiturates, Urine Not Detected (Not Detect); Benzodiazepines Screen Urine Not Detected (Not Detect); Buprenorphine Scr Not Detected (Not Detect); Cannabinoid Screen Urine Not Detected (Not Detect); Cocaine Screen Urine Not Detected (Not Detect); Fentanyl, urine Not Detected (Not Detect); Methadone Screen, Urine Not Detected (Not Detect); Opiate Screen Urine Not Detected (Not Detect); Oxycodone Screen Urine Not Detected (Not Detect); Phencyclidine Screen Urine Not Detected (Not Detect)
--- NOTE | 2023-12-03 03:38 | PC.NURSE ---
Pt OOB and sitting in a chair watching tv. Offered a blanket for comfort. No other verbalized needs at this time.
[2023-12-03 04:26] VITALS: BP 133/69; PULSE 70; RESP 16; TEMP 36.6; O2SAT 96
[2023-12-03 06:57] LABS: Glucose, Whole Blood 145 mg/dL (60-115)
--- NOTE | 2023-12-03 09:02 | PC.NURSE ---
Assumed care of patient at 0645, patient appears to be in no apparent distress this am, offering no complaints to this RN. Continue plan of care for inpatient bedsearch
--- NOTE | 2023-12-03 10:51 | PHA.MEDREC ---
Pharmacy Consult ? Medication Reconciliation Pharmacy has reviewed the medication reconciliation. When reviewing I did find some discrepancies. I went to speak to RN who had done the medication list and it was determined that patient is not a proper historian. Pharmacy claims were used. I did call [facility] pharmacy to confirm amlodpine, novolog, lantus and divalproex dosing.
[2023-12-03] MEDS: amLODIPine Besylate 5 MG TABLET 7.5 MG PO (11:18)
[2023-12-03] MEDS: Propranolol HCL 10 MG TABLET PO ×2 (11:20→21:08)
[2023-12-03] MEDS: Divalproex Sodium Sprinkles 125 MG CAP.DR.SPR 500 MG PO ×2 (11:20→21:08)
[2023-12-03] MEDS: FLUoxetine HCl 10 MG CAPSULE PO (11:20)
[2023-12-03] MEDS: Omeprazole 40 MG CAPSULE.DR PO (11:21)
[2023-12-03] MEDS: Losartan Potassium 50 MG TABLET PO (11:21)
[2023-12-03 13:26] LABS: Glucose, Whole Blood 176 mg/dL (60-115)
[2023-12-03 18:40] LABS: Glucose, Whole Blood 207 mg/dL (60-115)
--- NOTE | 2023-12-03 19:14 | PC.NURSE ---
patient appears to remain at rest at present respirations are even and unlabored patient appears in no distress.
[2023-12-03 19:46] VITALS: BP 134/69; PULSE 66; RESP 18; TEMP 36.3; O2SAT 96
[2023-12-03 21:08] VITALS: BP 134/69; PULSE 66
[2023-12-03] MEDS: Montelukast Sodium 10 MG TABLET PO (21:09)
[2023-12-03 21:15] LABS: Glucose, Whole Blood 275 mg/dL (60-115)
--- NOTE | 2023-12-03 21:54 | PC.NURSE ---
notified provider of poc at [id number]
[2023-12-04] MEDS: Omeprazole 40 MG CAPSULE.DR PO (06:12)
[2023-12-04 06:16] VITALS: BP 136/61; PULSE 58; RESP 17; TEMP 36.7; O2SAT 96
--- NOTE | 2023-12-04 06:56 | PC.NURSE ---
Assumed care of patient at 0645, patient appears to be sleeping, respirations even and unlabored, no apparent distress noted. Continue plan of care for respite bedsearch. Per CARE team, [facility] may call today for nurse to nurse
[2023-12-04 07:43] LABS: Glucose, Whole Blood 211 mg/dL (60-115)
[2023-12-04] MEDS: Divalproex Sodium Sprinkles 125 MG CAP.DR.SPR 500 MG PO (08:11)
[2023-12-04] MEDS: Calcium + Vitamin D 250 MG TABLET 500 MG PO (08:11)
[2023-12-04] MEDS: FLUoxetine HCl 10 MG CAPSULE PO (08:11)
[2023-12-04] MEDS: Loratadine 10 MG TABLET PO (08:11)
[2023-12-04] MEDS: Magnesium Oxide 400 MG TABLET PO (08:11)
[2023-12-04] MEDS: Atorvastatin Calcium 80 MG TABLET PO (08:11)
[2023-12-04] MEDS: traZODone HCL 50 MG TABLET PO (08:11)
[2023-12-04] MEDS: amLODIPine Besylate 5 MG TABLET 7.5 MG PO (08:11)
[2023-12-04] MEDS: Propranolol HCL 10 MG TABLET PO (08:11)
[2023-12-04] MEDS: Losartan Potassium 50 MG TABLET PO (08:11)
[2023-12-04] MEDS: Multivitamin TABLET 1 TAB PO (08:11)
[2023-12-04] MEDS: Insulin Lispro 100 UNIT/ML 3 ML VIAL SUBCUT ×2 (08:12→13:35)
[2023-12-04] MEDS: Ammonium Lactate 12 % Lotion 226 GM BOTTLE 1 APPL TOPICAL (10:21)
[2023-12-04 13:32] LABS: Glucose, Whole Blood 181 mg/dL (60-115)
--- NOTE | 2023-12-04 13:42 | PC.NURSE ---
POC 181 prior to lunch, pt medicated per MAY.
[2023-12-04 13:58] VITALS: RESP 14
--- NOTE | 2023-12-04 15:25 | PC.NURSE ---
Addendum entered by Jackie Mosher 12/04/23 18:25: Pt provided with clothing, towels and toiletries for shower. Patient independently showered without assistance. Pt then got dressed and washed her hair in the sink, per her request. Pt then folded her clothes and prepared for discharge. Pt able to dress independently, able to apply lotion to feet without assistance, needing no help from this RN for any ADLs. Pt then dressed herself in her own clothing and ambulated with steady gait out of ED with her to go to respite facility. Original Note: late entry:
[2023-12-04 15:56] VITALS: BP 124/67; PULSE 68; RESP 14; TEMP 36.6; O2SAT 97
== END 2023-12-04 15:58 | disposition other institution (70) ==
PROVIDERS: Internal Medicine; Emergency Provider Emergency Medicine Emergency Medical Services; PCP Student in an Organized Health Care Education/Training Program
DX: F32.A Depression, unspecified (principal); R45.851 Suicidal ideations; E11.9 Type 2 diabetes mellitus without complications; I10 Essential (primary) hypertension; J44.9 Chronic obstructive pulmonary disease, unspecified; Z79.4 Long term (current) use of insulin; Z79.899 Other long term (current) drug therapy
CPT/HCPCS: 36415; 80053; 80307; 82947; 85025; 99285; S9485

== ENCOUNTER → 2023-12-06 09:17 | Outpatient (REF) | payer OTHER, SELFPAY ==
--- NOTE | ~2023-12-06 | NM_ITS ---
EXERCISE MYOCARDIAL PERFUSION STUDY INDICATION: Chest pain TECHNIQUE: The patient was brought in for an exercise perfusion study on 12/06/2023. Patient performed exercise as per Miah protocol and was injected 25 mCi of sestamibi once target heart rate was achieved. Images were obtained using the SPECT gamma camera interlaced with the gating device. Images were obtained in supine position. Resting perfusion study was performed on 12/12/2023. Patient was administered 25 mCi of sestamibi intravenously at rest. Images were then obtained in supine position. Total DLP 103 mGy-cm. Images were processed with the software and compared side to side in short axis, horizontal long axis and vertical long axis views. FINDINGS: Raw aquisition reviewed. The stress perfusion study showed no significant perfusion abnormality. Both uncorrected as well as CT attenuation corrected images were reviewed. The gated study shows normal LV systolic function with calculated LVEF of 68%. LV cavity is normal in size. The gated study shows normal wall thickening and contraction of segments. Resting study shows no significant perfusion abnormality. Gating at rest reveals normal wall motion with ejection fraction at 64%. The findings are consistent with no clear reversible or fixed perfusion abnormality. NM/NM cardiolite stress test IMPRESSION: 1. Myocardial perfusion imaging study shows normal myocardial perfusion. 2. Gated LVEF is 68% during stress and 64% during rest. 3. Transient ischemic dilatation not present. EKG component of the test reported separately. Electronically signed by: Juan Antonio Wilson MD 12/12/2023 04:03 PM EDT
--- NOTE | 2023-12-06 09:21 | CA_ITS ---
Acquisition Time: 2023-12-06 09:26:25 Total Exercise Time: 00:04:35 Test Indications: CP CAD Medications: SEE H Protocol: ANY Max HR: 162 BPM 104% of Pred: 155 BPM Max BP: 154/056 mmHG Max Work Load: 6.4 METS Exercise stress test exercise 4 miun 35 sec of Any protocol with 30 sec of recovery walk to keep heart rate above 85% achieving approx 88% MPHR, with mild SOB, 5/10 chest pressure, with normotensive resposne to exercise, without arrhythmias noted, with downsloping in leads V3-V6. Chest pain and breathing returned to baseline with rest, Nuclear images pending. Test reviewed with Dr. Ford. Referred By: Joslyn Brito Overread By: Joslyn Brito
== END ==
LOC: HO.CARD 09:17
PROVIDERS: PCP Student in an Organized Health Care Education/Training Program; Visit Provider Nurse Practitioner
DX: R07.9 Chest pain, unspecified (principal); I25.10 Atherosclerotic heart disease of native coronary artery without angina pectoris; I10 Essential (primary) hypertension
CPT/HCPCS: 78452; 93017; A9500; J0280; J2785

== ENCOUNTER → 2023-12-06 09:21 | Outpatient (BNV) | payer OTHER, SELFPAY | PROVIDERS: PCP Student in an Organized Health Care Education/Training Program; Visit Provider Nurse Practitioner | DX: R07.9 Chest pain, unspecified (principal) | CPT/HCPCS: 78452; 93016; 93018 ==

== ENCOUNTER 2023-12-14 12:51 | Outpatient (AMB) | payer OTHER, SELFPAY ==
--- NOTE | 2023-12-14 13:07 | MHC.OFFVIS ---
Vital Signs 12/14/23 13:08 Height 5 ft 1 in Weight 158 lb 11.725 oz BMI 30.0 BP 118/60 Blood Pressure Location Lt brachial Position Sitting Pulse 68 Pulse Source Pulse Oximeter Intake Visit Reasons: r/s 11/01/23 6 wks followup echo/stress test Allergies Opioids - Morphine Analogues [OPIOIDS - MORPHINE ANALOGUES] Allergy (Severe, Verified 12/02/23 21:51) ANAPHYLAXIS iodine [IODINE] Allergy (Intermediate, Verified 12/02/23 21:51) RASH dulaglutide [Trulicity] Allergy (Unknown, Verified 12/02/23 21:51) Unknown hydrocodone [Vicodin] Allergy (Unknown, Verified 12/02/23 21:51) Unknown meperidine [Demerol] Allergy (Unknown, Verified 12/02/23 21:51) Unknown oxycodone [Percocet] Allergy (Unknown, Verified 12/02/23 21:51) Unknown povidone-iodine [Betadine] Allergy (Unknown, Verified 12/02/23 21:51) Unknown Penicillins [PENICILLINS] Adverse Reaction (Severe, Verified 12/02/23 21:51) VOMITING HPI Comments Details: 63-year-old female presents today for a follow-up. She had a stress test and echocardiogram to assess for chest pains. At the last visit she reported some left sided chest pains with left arm numbness. She reports she has gotten chest discomforts when she is having panic attack like symptoms. She has been under a lot of stress at home. Her mother was ill then and she has been grieving. She is working with professionals related to this. Otherwise she has been okay. Her blood pressure she reports have improved. Systolic are mostly 110-130. [facility]LY [facility] Medical History Chest pain Abnormal tilt table test Essential hypertension Type 2 diabetes mellitus with unspecified complications Atherosclerotic cardiovascular disease Intestinal malabsorption following gastrectomy Blindness of right eye History of ectopic Panic attacks Urinary, incontinence, stress female Infertility Asthma History of sleep apnea Arrhythmia HTN (hypertension) Type 2 diabetes mellitus Surgical History S/P laparoscopic sleeve gastrectomy History of repair of hiatal hernia History of sleeve gastrectomy History of foot surgery History of varicose vein stripping History of nasal septoplasty H/O ovarian cystectomy Hx of excision of dermoid cyst History of excision of pilonidal cyst Family History Father Diabetes Lymphoma Mother Diabetes Dementia Heart disease Legally blind Brother Diabetes Brother No problems noted. Sister Diabetes Son Asthma Spina bifida aperta of cervical spine Social History Alcohol intake: current Alcohol intake frequency: holidays/special occasions only Patient Tobacco Use Status: Never used Tobacco Review of Systems Const Denies weakness ENT Denies dizziness Card Denies chest pain, Denies chest pain with activity, Denies syncope, Denies rapid heart rate, Denies pedal edema, Denies edema, Denies leg edema, Denies lightheadedness, Denies palpitations, Denies dyspnea, Denies dyspnea on exertion and Denies orthopnea Resp Denies cough, Denies dyspnea and Denies dyspnea on exertion GI Denies hematochezia and Denies change in stool character Musc Denies abnormal gait, Denies muscle cramps, Denies muscle weakness, Denies numbness, Denies radiating pain into limb and Denies tingling Neuro Denies abnormal gait, Denies dizziness, Denies syncope, Denies numbness, Denies tingling and Denies weakness Endo Denies palpitations Physical Exam Vital Signs: Last Vital Signs Pulse 68 12/14/23 13:08 BP 118/60 12/14/23 13:08 BMI result Body Mass Index 30.0 Const General: healthy appearing and no acute distress Orientation/consciousness: patient oriented x3 HEENT Head: Yes normal to inspection Eyes General: appearance normal, both eyes and all related structures Neck Neck: Yes normal visual inspection Chest Chest palpation & inspection: normal inspection of the chest Resp Effort & Inspection: normal respiratory effort Auscultation: clear to auscultation bilaterally Cardio Jugular venous distension: no JVD Palpation: normal PMI Rate: regular rate Rhythm: regular rhythm Heart sounds: S1 normal heart sound present, S2 normal heart sound present, no click, no gallops, no murmurs and no rubs GI Inspection: Yes normal to inspection Palpation (GI): Soft to palpation Skin General skin exam: no rashes or lesions noted Neuro General: patient oriented x3 Extrem General: Yes normal to inspection Psych Appearance: grossly normal Results Reviewed Results Reviewed: Protocol: ANY Max HR: 162 BPM 104% of Pred: 155 BPM Max BP: 154/056 mmHG Max Work Load: 6.4 METS Exercise stress test exercise 4 miun 35 sec of Any protocol with 30 sec of recovery walk to keep heart rate above 85% achieving approx 88% MPHR, with mild SOB, 5/10 chest pressure, with normotensive resposne to exercise, without arrhythmias noted, with downsloping in leads V3-V6. Chest pain and breathing returned to baseline with rest, Nuclear images pending. Test reviewed with Dr. Ford. NM/NM cardiolite stress test IMPRESSION: 1. Myocardial perfusion imaging study shows normal myocardial perfusion. 2. Gated LVEF is 68% during stress and 64% during rest. 3. Transient ischemic dilatation not present. Conclusions: - The left ventricular systolic function is normal. The calculated ejection fraction is 69% by biplane method. - Evidence suggests grade II (moderate) diastolic dysfunction. - No obvious valvular pathology seen on this study. Assessment & Plan Assessment & Plan (1) Atherosclerotic cardiovascular disease: Code(s): I25.10 - Atherosclerotic heart disease of [place] coronary artery without angina pectoris Category: Medical Plan: No recent LDL. She is on statins. She reports recent blood work with PCP. Will request. Heart healthy lifestyle reviewed. (2) Chest pain: Code(s): R07.9 - Chest pain, unspecified Category: Medical Plan: Normal myocardial perfusion on nuclear imaging. Chest discomforts mostly related to anxiety / panic attacks / high stress. Reviewed signs and symptoms of angina. (3) Essential hypertension: Code(s): I10 - Essential (primary) hypertension Category: Medical Plan: Blood pressures improved. She is on amlodipine and losartan. Coding Level of Care Code Est Pt Level 4 (96958) Diagnoses Atherosclerotic cardiovascular disease I25.10 Chest pain R07.9 Essential hypertension I10
[2023-12-14 13:08] VITALS: BP 118/60; PULSE 68
== END 2023-12-14 13:39 | disposition home or self-care (01) ==
PROVIDERS: PCP Student in an Organized Health Care Education/Training Program; Visit Provider Nurse Practitioner
DX: I25.10 Atherosclerotic heart disease of native coronary artery without angina pectoris (principal); R07.9 Chest pain, unspecified; I10 Essential (primary) hypertension
CPT/HCPCS: 99214

== ENCOUNTER → 2023-12-14 12:51 | Outpatient (BNVA) | payer OTHER, SELFPAY | PROVIDERS: PCP Student in an Organized Health Care Education/Training Program; Visit Provider Nurse Practitioner | DX: I25.10 Atherosclerotic heart disease of native coronary artery without angina pectoris (principal); R07.9 Chest pain, unspecified; I10 Essential (primary) hypertension | CPT/HCPCS: 99212 ==

== ENCOUNTER 2024-01-14 09:06 | Outpatient (REF) | payer OTHER, SELFPAY ==
[2024-01-14 09:58] LABS: MANUAL DIFF FLAG NO
[2024-01-14 10:05] LABS: Basophils Percent Auto 0.5 % (0-2); Eosinophils Absolute Auto 0.2 X10*3/uL (0.0-0.4); Eosinophils Percent Auto 2.5 % (0-4); Hematocrit 42.9 % (37.0-47.0); Hemoglobin 14.3 g/dl (12.0-16.0); Imm Gran Abs Auto 0.02 X10*3/uL (0.00-0.03); Imm Gran Pct Auto 0.3 % (0.0-0.4); Lymphocytes Absolute Auto 1.9 X10*3/uL (1.2-4.9); Lymphocytes Percent Auto 28.5 % (20-40); Mean Corpuscular HGB Conc 33.3 g/dl (31.0-35.0); Mean Corpuscular Hemoglobin 32.7 pg (27.0-33.0); Mean Corpuscular Volume 98.2 fL (80.0-98.0); Mean Platelet Volume 10.1 fL (9.4-12.3); Monocytes Absolute Auto 0.7 X10*3/uL (0.1-1.2); Monocytes Percent Auto 11.1 % (2-11); Neutrophils Absolute Auto 3.7 x10*3/uL (2.0-8.3); Neutrophils Percent Auto 57.1 % (45-73); Platelet Count 186 X10*3/uL (160-400); Red Blood Count 4.37 X10*6/uL (4.20-5.50); Red Cell Distribution Width 13.9 % (11.0-16.0); White Blood Count 6.5 X10*3/uL (4.8-10.8)
[2024-01-14 10:21] LABS: Estimated Average Glucose 143 mg/dL; Hemoglobin A1C 174.9708 umol/L; Hemoglobin A1c % 6.6 % (<6.0); Total Hemoglobin (HGBA1C) 3561.8769 umol/L
[2024-01-14 10:52] LABS: Alanine Aminotransferase 12 U/L (0-31); Albumin Level 3.7 g/dL (3.5-5.0); Alkaline Phosphatase 48 U/L (39-117); Anion Gap 12 (12-20); Aspartate Amino Transferase 19 U/L (5-31); Bilirubin Total 0.4 mg/dL (0.0-1.0); Blood Urea Nitrogen 15 mg/dL (9-16); Calcium 9.4 mg/dL (8.4-10.2); Carbon Dioxide 31 mmol/L (22-29); Chloride 107 mmol/L (96-108); Cholesterol 214 mg/dL (<200); Estimated Glomerular Filt Rate > 60; Gamma Glutamyl Transpeptidase 37 U/L (7-33); Glucose Fasting 120 mg/dL (60-99); HDL Cholesterol 80 mg/dL (>40); Iron 115 mcg/dL (30-160); LDL Cholesterol Calculated 123 mg/dL (<100); Magnesium 1.9 mg/dL (1.6-2.6); Percent Iron Saturation 42 % (15-50); Phosphorus 3.7 mg/dL (2.7-4.5); Potassium 4.8 mmol/L (3.3-5.1); Sodium 145 mmol/L (135-145); Total Iron Binding Capacity 273 mcg/dL (228-428); Total Protein 6.6 g/dL (6.5-8.0); Triglycerides 59 mg/dL (<150); Unsaturated Iron Binding 158 ug/dL
[2024-01-14 10:53] LABS: Erythrocyte Sedimentation Rate 5 MM/HR (0-20)
[2024-01-14 11:00] LABS: Parathyroid Hormone Intact 71.3 pg/mL (8.7-77.1)
[2024-01-14 11:07] LABS: Ferritin 88 ng/mL (10-250); Free T4 (Free Thyroxine) 1.04 ng/dL (0.71-1.85); Thyroid Stimulating Hormone 0.42 uIU/mL (0.32-4.0); Vitamin D 25-OH Total 64.9 ng/mL (>30)
[2024-01-14 11:19] LABS: Folate 15.2 ng/mL (> or = 4.0); Vitamin B12 788 pg/mL (200-900)
[2024-01-14 11:46] LABS: Valproate 30.6 mcg/mL (50.0-100.0)
[2024-01-16 02:34] LABS: Triiodothyronine T3 Free 3.1 pg/mL (2.3-4.2); Triiodothyronine T3 Total 88 ng/dL (76-181)
[2024-01-16 18:59] LABS: Homocysteine 7.8 umol/L (<10.4)
[2024-01-20 06:28] LABS: Vitamin B1 21 nmol/L (8-30)
[2024-01-20 13:44] LABS: Carnitine Esters 10 umol/L (4-13); Carnitine, Free 36 umol/L (19-48); Carnitine, Total 46 umol/L (25-58); Esterified/Free 0.28 umol/L (0.13-0.42)
[2024-01-21 11:24] LABS: Vitamin A 59 mcg/dL (38-98)
== END 2024-01-14 09:07 | disposition home or self-care (01) ==
LOC: HO.LAB 09:06
PROVIDERS: PCP Family Medicine; Visit Provider Psychiatry & Neurology Psychiatry
DX: F31.9 Bipolar disorder, unspecified (principal); Z13.1 Encounter for screening for diabetes mellitus
CPT/HCPCS: 36415; 80053; 80061; 80164; 82306; 82379; 82550; 82607; 82728; 82746; 82977; 83036; 83090; 83540; 83735; 83970; 84100; 84207; 84425; 84439; 84443; 84480; 84481; 84590; 85025; 85652; 86140

== ENCOUNTER 2024-01-20 09:30 | Outpatient (RCR) | payer OTHER, SELFPAY ==
[2024-01-06 09:58] VITALS: BP 130/58; PULSE 60; TEMP 36.3
[2024-01-06 10:03] VITALS: BMI 30.1
--- NOTE | 2024-01-06 11:11 | PC.ADMIT ---
Patient is a 63 zuhair old female who was referred to [facility] by her therapist and insurance agent d/t increased sxs of depression, difficulty attending to her ADL's, isolation, not being able to engage in activities she previously enjoyed, and not wanting to get out of bed. Patient was seen by crisis at [facility] on 12/03/23. Stressors include loss of her mother in October 2023 who patient continues to grieve that loss. She stated her and her mother were close and lived together for many years as patient helped take care of her mother. Patient reports her mother moved into a intermediate the last year of her life as she was no longer able to care of her. According to records patient lost her job at [employer] as she was forced to retire d/t visual impairment. She worked for [employer] for 30 years. In addition, patient reportedly was stopped driving while intoxicated with children in the car-per [facility] note. ETOH level 56, Toxicology screen negative on 12/03/23. Patient reportedly increased alcohol use since mother passed per records. Patient told this instructional writer she drinks two 4 oz cocktails on the weekends. She was given education about the potential for increased side effects with alcohol use and prescription medications along with short and shelter effects of alcohol use including medical complications. Patient reports having VNA services for medication management and a home health aid who assists her with ADLs including showering. Patient reports history of falling down and does not use her walking stick or walker as she stated she is vain and does not want to look like an older person. I recommended while in the program to use her walking stick or walker to prevent falls. Patient has vision impairment of the R eye secondary to diabetes Type II and uses magnifying glass on her phone to aid in reading. Patient is alert and oriented x4. Calm and cooperative. Her thoughts are clear and logical. She presented with depressed mood and anxious affect. Denied SI, No HI. She was given a copy of her safety plan if needed. Medications reconciled with medication list that patient provided. Awaiting call back from patient's VNA Luis who manages her medications for confirmation of the list.
--- NOTE | 2024-01-06 12:48 | P.HPPSP_ITS ---
HPI Date of Service: 01/06/24 Chief Complaint: depression,bipolar Sources of Information: patient interviewed, chart reviewed and crisis/core team assessment reviewed HPI Narrative: Patient is a 63 year female with history of Insulin-Dependent Diabetes Mellitus, Bipolar I Disorder on VPA who was referred to [facility] by her outpatient therapist. She suggested and I agreed to come. I was not doing well. My family was concerned. Also they say I was 'drinking too much'..I don't know. Is 2 drinks too much??.. although I guess especially (drinking) with meds . Patient reports recently traumatic loss as precipitant. My mother and it was very traumatic. She was sick and old, but it happened so fast . She describes watching her mother code while she was at her bedside and remained there as they tried unsuccessfully to resuscitate her. She got up from her chair during her recount, moving about, pacing, giving a recollection of these events and was very agitated and tearful. I cant stop thinking I'll never see her again. She was my best friend . She has been struggling emotionally and behaviorally, having breakdowns and had been experiencing acute depression, grief and what sounds like acute stress reaction to witnessing her mother's passing. She was sectioned to [facility] on 12/01 for vague SI and binge drinking and was discharged to [facility] [place] [place]. She is frustrated by her family, particularly her brother who tells her to get my s&*t together and feels he is not understanding of bereavement and trauma. She does not feels she has any issues with alcohol or substance use and denies any cravings. She reports regular activity/exercise and a near perfect diet for the sake of her health. I'm the perfect diabetic patient...my #1 focus in my eyes . She had nearly loss her eyesight, but through lifestyle changes she was able to recover some of her vision, and says she remains very motivated to preserve what vision she has left. Past Psychiatric History: History of remote IPLOCs including to [facility] >30 yrs ago, one recent admission to [facility] in 2020. No previous [facility] admissions Outpatient therapist: Lisette Islas Psych provider: Cinda Santos (seen for past 1-2 yrs) PCP: Claudy Mc MD VNA services through [facility] CURRENT MEDICATIONS: Depakote 500 mg BID Prozac 10 mg qd propranolol 10 mg BID trazodone 50 mg qhs lorazepam 0.5 mg qd prn sliding scale insulin subcut TIDAC insulin glargine 3 units subcut qhs rosuvastatin 40 mg qd losartan 50 mg qd amlodipine 7.5 mg qd certirizine 10 mg qd montelukast 10 mg qhs Symbicort inhaler BID omeprazole DR 40 mg qd calcium carbonate 600 mg/vit D3 500 IU qd magnesium oxide 400 mg qd ammonium lactate topical daily multivitamin [facility] Medical History (Updated 01/10/24 @ 03:08 by Gianna Templeton MD) COPD (chronic obstructive pulmonary disease) Cataract Arthritis IBS (irritable bowel syndrome) Chest pain Abnormal tilt table test Essential hypertension Type 2 diabetes mellitus with unspecified complications Atherosclerotic cardiovascular disease Intestinal malabsorption following gastrectomy Blindness of right eye History of ectopic Panic attacks Urinary, incontinence, stress female Infertility Asthma History of sleep apnea Arrhythmia HTN (hypertension) Type 2 diabetes mellitus Narrative: Visual impairment - macular degeneration and retinopathy with near complete loss of vision in right eye Also reports hx of diverticulitis Denies hx of seizures Denies concussions or TBI Recent RSV infection, was on prednisone, which destabilized her blood sugars Recent unintentional weight loss of 10 lbs (1) Postmenopausal Ht: 5'1 Wt: 161. 5 lbs ALL: PCN, opioids, hydrocodone, oxycodone, meperidine, iodine, Betadine, dulaglutide, Surgical History (Updated 01/06/24 @ 09:54 by Beatriz Leal RN) History of carpal tunnel surgery S/P laparoscopic sleeve gastrectomy History of repair of hiatal hernia History of sleeve gastrectomy History of foot surgery History of varicose vein stripping History of nasal septoplasty H/O ovarian cystectomy Hx of excision of dermoid cyst History of excision of pilonidal cyst Family History: Lives at home with her and her 9 yo niece whom she is raising as her own daughter She shares a close relationship with her whom she describes as my little white Caodaism boy who was raised in [facility] and is fluent in [place] and has lived and knows the () culture which she greatly values in a partner She also has a brother who is a strong support, but says she has been haivng trouble lately due to their very different ways in dealing with the loss of their mother Social History: Gave to twins, lost baby girl, son survived who is now 30 yo Good relationship with her son is good Trauma History: Grieving the loss of her mother who a month ago I cant stop thinking I'll never see her again . Loss infant daughter (twin) 30 years ago, which was heartbreaking, and continues to cause her sorrow Diagnostics Vital Signs (24Hr): Vital Signs - 24 hr 01/06/24 09:58 Temperature 97.4 F Pulse Rate 60 Blood Pressure 130/58 L BMI result Body Mass Index 30.1 Meds/Allergies Meds Home Medications ?Medication ?Instructions ?Recorded ?Confirmed ?Type calcium carbonate 600 mg-vitamin 1 cap PO DAILY 01/08/20 01/10/24 History D3 12.5 mcg (500 unit) capsule (Calcium 600 with Vitamin D3) montelukast 10 mg tablet 10 mg PO BEDTIME 01/08/20 01/10/24 History omeprazole 40 mg capsule,delayed 40 mg PO BID 01/08/20 01/10/24 History release amlodipine 5 mg tablet 7.5 mg PO DAILY 09/01/22 01/10/24 History fluoxetine 10 mg capsule 10 mg PO DAILY 07/28/23 01/10/24 History ammonium lactate 12 % lotion 1 appl topical DAILY 12/03/23 01/10/24 History budesonide-formoterol HFA 160 1 puff inhalation BID 12/03/23 01/10/24 History mcg-4.5 mcg/actuation aerosol inhaler (Symbicort) cetirizine 10 mg tablet 10 mg PO DAILY 12/03/23 01/10/24 History divalproex 125 mg capsule,delayed 500 mg PO BID 12/03/23 01/10/24 History release sprinkle insulin aspart U-100 100 unit/mL See Rx Instructions .Route .COMPLEX 12/03/23 01/10/24 History (3 mL) subcutaneous pen (Novolog FlexPen U-100 Insulin aspart) insulin glargine 100 unit/mL (3 3 unit subcut BEDTIME 12/03/23 01/10/24 History mL) subcutaneous pen (Lantus Solostar U-100 Insulin) magnesium oxide 400 mg (241.3 mg 400 mg PO DAILY 12/03/23 01/10/24 History magnesium) tablet lorazepam 0.5 mg tablet 0.5 mg PO BID PRN Anxiety 12/14/23 01/10/24 History trazodone 50 mg tablet 50 mg PO BEDTIME PRN Insomnia 12/14/23 01/10/24 History albuterol sulfate 90 mcg/actuation 2 puff inhalation Q4H PRN sob 01/10/24 01/10/24 History aerosol inhaler cholecalciferol (vitamin D3) 50 50 mcg PO DAILY 01/10/24 01/10/24 History mcg (2,000 unit) capsule (Vitamin D3) diphenoxylate-atropine 2.5 1 tab PO QID PRN Diarrhea 01/10/24 01/10/24 History mg-0.025 mg tablet (Lomotil) fluticasone propionate 50 2 spray intranasal DAILY 01/10/24 01/10/24 History mcg/actuation nasal spray,suspension multivitamin,[id number] See Rx Instructions .Route .COMPLEX 01/10/24 01/10/24 History rosuvastatin 10 mg tablet 10 mg PO BEDTIME 01/10/24 01/10/24 History Allergies Allergies Allergy/AdvReac Type Severity Reaction Status Date / Time Opioids - Morphine Analogues Allergy Severe ANAPHYLAXIS Verified 12/02/23 21:51 [OPIOIDS - MORPHINE ANALOGUES] iodine [IODINE] Allergy Intermediate RASH Verified 12/02/23 21:51 dulaglutide [Trulicity] Allergy Unknown Unknown Verified 12/02/23 21:51 hydrocodone [Vicodin] Allergy Unknown Unknown Verified 12/02/23 21:51 meperidine [Demerol] Allergy Unknown Unknown Verified 12/02/23 21:51 oxycodone [Percocet] Allergy Unknown Unknown Verified 12/02/23 21:51 povidone-iodine [Betadine] Allergy Unknown Unknown Verified 12/02/23 21:51 Penicillins [PENICILLINS] AdvReac Severe VOMITING Verified 12/02/23 21:51 Mental Status Exam Mental Status Exam Narrative: Alert, oriented, in no acute distress. Calm, cooperative, engaged, dalila at moments but otherwise well-related, conversant. No psychomotor agitation or neurovegetative retardation. Eye contact maintained. Mood depressed, affect constricted, irritable edge without notable lability. Speech normal. Thought process linear, coherent. Thought content related to stressors, transient helplessness, no hopelessness noted, denies SI, intention, urge or plan. Denies any aggressive ideation or HI. No paranoia or delusional content elicited. No evidence of psychosis. Insight and judgment - fair-good Assessment & Plan Assessment & Plan (1) Bipolar disorder, current episode depressed, severe, without psychotic features: Status: Acute Code(s): F31.4 - Bipolar disorder, current episode depressed, severe, without psychotic features (2) SELINA (generalized anxiety disorder): Status: Acute Code(s): F41.1 - Generalized anxiety disorder (3) Alcohol abuse: Status: Acute Code(s): F10.10 - Alcohol abuse, uncomplicated Plan Admit to [facility] VS reviewed: abrefile; BP?130/58; 60 bpm Continue regular medications including: Depakote (DR casiano) 500 mg BID fluoxetine 10 mg qam propranolol 10 mg TID trazodone 50 mg qhs Reviewed lab work no recent LFTs, VPA in EMR, will order routine lab work ordered including LFTs, carnitine, trough VPA level (hold am VPA before labs) UDS, EKG as indicated [facility] reviewed Continue to monitor as per protocol Patient educated on: diagnosis, medication risk/benefits and substance abuse Informed Consent: understands Reason for continued partial hosp. stay Substantial Risk for: med/psych decompensation Certification I certify that partial hospital treatment is medically necessary due to the symptoms and problems resulting from the patient's mental illness and the failure to treat the patient at the partial hospital level of care would likely result in the patient requiring inpatient psychiatric care which could not be prevented at a less intensive level of care. Time Spent With Patient Time: Total time managing care of this patient today __60__ minutes.
--- NOTE | 2024-01-12 15:01 | HO.PHP ---
Client's case has been opened and reviewed in team.
--- NOTE | 2024-01-13 12:46 | HO.PHPPROGNO ---
Subjective Subjective Date of Service: 01/13/24 Reason For Visit: depression,bipolar Interim History: Patient seen for follow-up. She reports she is doing okay . She is coming to like the program I didn't expect it to be helpful.. in the beginning is was too earthy 'kumbaya ... now it's feeling better. And I'm learning, and am more able to express myself . She feels she is gaining perspective appreciates other people's stories and perspective and appreciates their feedback. Overall the experience has been validating...I'm not the only one who has had it hard . Still having to push herself but feels she has been making gains. She had shared for plans for the weekend of getting my nails done and says at first I felt kind of guilty because it seemed like a materialistic, superifical thing to do. But when I shared my feelings with the group, it was pointed out that this was me taking care of myself . The group reminded her not long ago she was just staying in bed, not getting up, not showering, not eating or taking care of herself. You know they said that and I thought 'wow they're right. I'm making progress' . Denies any hopelessness or SI. Says she is feeling a little more optimistic and little more up for the challenges she faces (regarding here health and vision). She says she is a good diabetic avoids sweets, eats healthy foods because of fear of losing her vision. Medication Compliance: Yes Side effects from medications: No Attending Groups: Yes Review of Systems Acute medical concerns: No as mentioned Medical Review of Systems: unchanged Mental Status Exam Mental Status Exam Narrative: Alert, oriented, in no acute distress. Calm, cooperative, engaged. No psychomotor agitation or neurovegetative retardation. Eye contact maintained. Mood less anxious and depressed, affect appropriate, mood congruent, less irritable. Speech normal. Thought process linear, coherent. Thought content related to stressors, denies any hopelessness or SI. Denies any aggressive ideation or HI. No paranoia or delusional content elicited. No evidence of psychosis. Insight and judgment intact. Diagnostics Vital Signs (24Hr): BMI result Body Mass Index 30.1 Assessment & Plan Assessment & Plan (1) Bipolar disorder, current episode depressed, severe, without psychotic features: Status: Acute Code(s): F31.4 - Bipolar disorder, current episode depressed, severe, without psychotic features (2) SELINA (generalized anxiety disorder): Status: Acute Code(s): F41.1 - Generalized anxiety disorder Plan continue Depakote (DR casiano) 500 mg BID continue fluoxetine 10 mg qam continue propranolol 10 mg TID continue trazodone 50 mg qhs continue lorazepam 0.5 mg BID prn anxiety continue calcium-vit D3 supplements continue magnesium supplements continue other regular medications:insulin Novolog, Lantus, omeprazole 40 mg BID, diphenoxylate-atropine QID prn diarrhea, ammonium lactate, rosuvastatin, amlodipine, losartan, propranolol, cetirizine, montelukast, fluticasone intranasal spray, Symbicort inhaler, albuterol inhaler prn h/o asthma on propranolol (?bronchoconstrx), discussed with patient Lab slip given for routine labs including LFTs, VPA level, carnitine (pt aware to hold am VPA before labs) as well as obtain routine EKG UDS as indicated Continue to monitor Patient educated on: diagnosis and medication risk/benefits Informed Consent: understands Reason for contiued partial hosp. stay Substantial Risk for: med/psych decompensation Certification I certify that partial hospital treatment is medically necessary due to the symptoms and problems resulting from the patient's mental illness and the failure to treat the patient at the partial hospital level of care would likely result in the patient requiring inpatient psychiatric care which could not be prevented at a less intensive level of care. Total time managing care of this patient today __30__ minutes. Discharge Plan Discharge Attending provider: Gianna Templeton Medications: No Action propranolol 10 mg tablet 10 mg PO BID 90 Days Qty: 180 1RF losartan 50 mg tablet 50 mg PO DAILY Qty: 90 3RF ammonium lactate 12 % lotion 1 appl topical DAILY cetirizine 10 mg tablet 10 mg PO DAILY magnesium oxide 400 mg (241.3 mg magnesium) tablet 400 mg PO DAILY divalproex 125 mg capsule, delayed rel sprinkle 500 mg PO BID insulin aspart U-100 [Novolog FlexPen U-100 Insulin] 100 unit/mL (3 mL) insulin pen See Rx Instructions .ROUTE .COMPLEX Rx Instructions: Sliding scale. Up to 10 units before meals TID. budesonide-formoterol [Symbicort] 160-4.5 mcg/actuation HFA aerosol inhaler 1 puff inhalation BID Rx Instructions: Last Filled October 2023. insulin glargine [Lantus Solostar U-100 Insulin] 100 unit/mL (3 mL) insulin pen 3 unit subcut BEDTIME rosuvastatin 10 mg tablet 10 mg PO BEDTIME cholecalciferol (vitamin D3) [Vitamin D3] 50 mcg (2,000 unit) Capsule 50 mcg PO DAILY Therapeutic M Tablet See Rx Instructions .ROUTE .COMPLEX Rx Instructions: One tab daily albuterol sulfate 90 mcg/actuation HFA aerosol inhaler 2 puff inhalation Q4H PRN (Reason: sob) fluticasone propionate 50 mcg/actuation spray,suspension 2 spray intranasal DAILY diphenoxylate-atropine [Lomotil] 2.5-0.025 mg Tablet 1 tab PO QID PRN (Reason: Diarrhea) Rx Instructions: Filled [facility]23 trazodone 50 mg tablet 50 mg PO BEDTIME PRN (Reason: Insomnia) montelukast 10 mg tablet 10 mg PO BEDTIME omeprazole 40 mg capsule,delayed release(DR/EC) 40 mg PO BID calcium carbonate-vitamin D3 [Calcium 600 with Vitamin D3] 600 mg(1,500mg) -500 unit capsule 1 cap PO DAILY amlodipine 5 mg tablet 7.5 mg PO DAILY Rx Instructions: Take one and a half tab daily. fluoxetine 10 mg capsule 10 mg PO DAILY lorazepam 0.5 mg tablet 0.5 mg PO BID PRN (Reason: Anxiety) Rx Instructions: Last [facility]23 10 tabs. Print Language: Georgian
--- NOTE | 2024-01-20 21:46 | P.PNPSP_ITS ---
Subjective Subjective Date of Service: 01/20/24 Reason For Visit: depression,bipolar Interim History: Patient seen for follow-up, anticipating discharge at the end of program today.? Reports no acute issues or concerns. Medication compliant, medications well- tolerated. Denies any adverse effects.? Weight gain Mood is stable.? Denies any hopelessness or SI. Denies thoughts of harming self or others at this time. Denies any aggressive ideation or HI. Denies any paranoia or AH or VH. Sleep, appetite, energy stable. Medication Compliance: Yes Side effects from medications: Yes (weight gain) Attending Groups: Yes Review of Systems Acute medical concerns: No Mental Status Exam Mental Status Exam Narrative: Alert, oriented, in no acute distress. Calm, cooperative, engaged. Eye contact maintained. Mood stable, affect appropriate, mood congruent, less irritable. Speech normal. Thought process linear, coherent. Thought content related to stressors, denies any hopelessness or SI. Denies any aggressive ideation or HI. No paranoia or delusional content elicited. No evidence of psychosis. Insight and judgment intact. Diagnostics Vital Signs (24Hr): BMI result Body Mass Index 30.1 Assessment & Plan Assessment & Plan (1) Bipolar disorder, current episode depressed, severe, without psychotic features: Status: Acute Code(s): F31.4 - Bipolar disorder, current episode depressed, severe, without psychotic features (2) SELIAN (generalized anxiety disorder): Status: Acute Code(s): F41.1 - Generalized anxiety disorder Plan [facility]charge from [facility] Continue regular medications Refills sent to pharmacy Will defer further medication management to outpatient provider *Safety plan reviewed *Discharge diagnoses, treatment course, discharge plan have been reviewed with patient (including medication regime, medication management, potential side effects) as well as treatment rationale were also revisited *Discharge paperwork signed and given to patient, copy sent for scanning to chart Patient educated on: diagnosis and medication risk/benefits Informed Consent: understands Reason for contiued partial hosp. stay Substantial Risk for: stable for discharge Certification I certify that partial hospital treatment is medically necessary due to the symptoms and problems resulting from the patient's mental illness and the failure to treat the patient at the partial hospital level of care would likely result in the patient requiring inpatient psychiatric care which could not be prevented at a less intensive level of care. Total time managing care of this patient today __30__ minutes. Discharge Plan Discharge Attending provider: Gianna Templeton Additional Instructions: [place] has an OP therapist, Lisette Felton, in which her next scheduled appointment is on January 24, 2024 at 12 PM via telehealth. [place] has a med provider, Kiley Lainez, in which her next scheduled appointment is on February 21, 2024 at 8:30 AM via telehealth. Medications: Continued propranolol 10 mg tablet 10 mg PO BID 90 Days Qty: 180 1RF losartan 50 mg tablet 50 mg PO DAILY Qty: 90 3RF ammonium lactate 12 % lotion 1 appl topical DAILY cetirizine 10 mg tablet 10 mg PO DAILY magnesium oxide 400 mg (241.3 mg magnesium) tablet 400 mg PO DAILY divalproex 125 mg capsule, delayed rel sprinkle 500 mg PO BID insulin aspart U-100 [Novolog FlexPen U-100 Insulin] 100 unit/mL (3 mL) insulin pen See Rx Instructions .ROUTE .COMPLEX Rx Instructions: Sliding scale. Up to 10 units before meals TID. budesonide-formoterol [Symbicort] 160-4.5 mcg/actuation HFA aerosol inhaler 1 puff inhalation BID Rx Instructions: Last Filled October 2023. insulin glargine [Lantus Solostar U-100 Insulin] 100 unit/mL (3 mL) insulin pen 3 unit subcut BEDTIME rosuvastatin 10 mg tablet 10 mg PO BEDTIME cholecalciferol (vitamin D3) [Vitamin D3] 50 mcg (2,000 unit) Capsule 50 mcg PO DAILY albuterol sulfate 90 mcg/actuation HFA aerosol inhaler 2 puff inhalation Q4H PRN (Reason: sob) fluticasone propionate 50 mcg/actuation spray,suspension 2 spray intranasal DAILY diphenoxylate-atropine [Lomotil] 2.5-0.025 mg Tablet 1 tab PO QID PRN (Reason: Diarrhea) Rx Instructions: Filled [facility]23 trazodone 50 mg tablet 50 mg PO BEDTIME PRN (Reason: Insomnia) montelukast 10 mg tablet 10 mg PO BEDTIME omeprazole 40 mg capsule,delayed release(DR/EC) 40 mg PO BID calcium carbonate-vitamin D3 [Calcium 600 with Vitamin D3] 600 mg(1,500mg) - 500 unit capsule 1 cap PO DAILY amlodipine 5 mg tablet 7.5 mg PO DAILY Rx Instructions: Take one and a half tab daily. fluoxetine 10 mg capsule 10 mg PO DAILY lorazepam 0.5 mg tablet 0.5 mg PO BID PRN (Reason: Anxiety) Rx Instructions: [facility]23 10 tabs. No Action Therapeutic M Tablet See Rx Instructions .ROUTE .COMPLEX Rx Instructions: One tab daily Stand Alone Forms: Patient Portal Discharge page Print Language: [place]
== END 2024-01-20 23:59 | disposition home or self-care (01) ==
LOC: HO.PHPA 09:30
PROVIDERS: Visit Provider Psychiatry & Neurology Psychiatry
DX: F31.4 Bipolar disorder, current episode depressed, severe, without psychotic features (principal); F41.1 Generalized anxiety disorder; Z79.899 Other long term (current) drug therapy
CPT/HCPCS: 90791; 90853

== ENCOUNTER 2024-12-18 10:50 | Outpatient (AMB) | payer OTHER, SELFPAY ==
--- NOTE | 2024-12-18 10:54 | A.OFFVIS_ITS ---
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: No Accompanied by: Self / Same As Patient Allergies Opioids - Morphine Analogues (OPIOIDS - MORPHINE ANALOGUES) Allergy (Severe, Verified 12/02/23 21:51) ANAPHYLAXIS iodine (IODINE) Allergy (Intermediate, Verified 12/02/23 21:51) RASH dulaglutide (Trulicity) Allergy (Unknown, Verified 12/02/23 21:51) Unknown hydrocodone (Vicodin) Allergy (Unknown, Verified 12/02/23 21:51) Unknown meperidine (Demerol) Allergy (Unknown, Verified 12/02/23 21:51) Unknown oxycodone (Percocet) Allergy (Unknown, Verified 12/02/23 21:51) Unknown povidone-iodine (Betadine) Allergy (Unknown, Verified 12/02/23 21:51) Unknown Penicillins (PENICILLINS) Adverse Reaction (Severe, Verified 12/02/23 21:51) VOMITING Medication List - Last Reconciled 12/18/24 by Juan Antonio Wilson MD albuterol sulfate 90 mcg/actuation 2 puffs inhalation Q4H PRN amlodipine 10 mg PO DAILY ammonium lactate 12% 1 appl topical DAILY budesonide-formoterol 160-4.5 mcg/actuation (Symbicort) 1 puff inhalation BID calcium carbonate-vitamin D3 600 mg-12.5 mcg (500 unit) (Calcium with Vit D3) 1 cap PO DAILY cetirizine 10 mg PO DAILY diphenoxylate-atropine 2.5-0.025 mg (Lomotil) 1 tab PO QID PRN divalproex 500 mg PO BID dorzolamide-timolol 22.3-6.8 mg/mL ophthalmic (eye) fluoxetine 10 mg PO DAILY fluticasone propionate 50 mcg/actuation 2 sprays intranasal DAILY insulin aspart U-100 (Novolog FlexPen U-100 Insulin aspart) Sliding scale. Up to 10 units before meals TID. insulin glargine (Lantus Solostar U-100 Insulin) 3 units subcut BEDTIME lorazepam 0.5 mg PO BID PRN losartan 50 mg PO DAILY montelukast 10 mg PO BEDTIME omeprazole 40 mg PO BID propranolol 10 mg PO BID rosuvastatin 20 mg PO BEDTIME trazodone 50 mg PO BEDTIME PRN HPI Comments Details: Cheyenne returns for follow-up regarding coronary disease. She has a history of nonobstructive CAD based on cardiac catheterization. She had multiple cardiac risk factors including obesity, diabetes, hypertension, dyslipidemia. She was i nitially seen for preoperative workup prior to bariatric surgery. Then she actually underwent gastric sleeve surgery and lost almost 120Lb. However, she has gained some of the weight back. Overall, she states she feels good. Apparently, under lot of stress last year due to family issues but currently they seem better. She has got no clear-cut concerns like angina or shortness of breath or in fact anything cardiac sounding. 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 Blindness of right eye History of ectopic Panic attacks Urinary, incontinence, stress female Infertility Asthma History of sleep apnea Arrhythmia HTN (hypertension) Type 2 diabetes mellitus Surgical History History of carpal tunnel surgery S/P laparoscopic sleeve gastrectomy History of repair of hiatal hernia History of sleeve gastrectomy History of foot surgery History of varicose vein stripping History of nasal septoplasty H/O ovarian cystectomy Hx of excision of dermoid cyst History of excision of pilonidal cyst Family History Father Diabetes Lymphoma Mother Diabetes Dementia Heart disease Legally blind Brother Diabetes Brother No problems noted. Sister Diabetes Son Asthma Spina bifida aperta of cervical spine Social History Household Members: Spouse and Children Alcohol intake: current Alcohol intake frequency: holidays/special occasions only Patient Tobacco Use Status: Current everyday Tobacco user Tobacco use type: Cigarette Review of Systems Const Denies chills, Denies fatigue, Denies fever(s), Denies frequent falls, Denies weakness, Denies weight gain and Denies weight loss ENT Denies dizziness Card Denies chest pain, Denies leg edema, Denies lightheadedness, Denies palpita tions, Denies dyspnea and Denies dyspnea on exertion Resp Denies cough, Denies dyspnea and Denies dyspnea on exertion GI Denies hematochezia Musc Denies abnormal gait, Denies muscle weakness, Denies numbness, Denies radiating pain into limb and Denies tingling Neuro Denies abnormal gait, Denies dizziness, Denies frequent falls, Denies numbness, Denies tingling and Denies weakness Endo Denies fatigue and Denies palpitations Physical Exam Vital Signs: Last Vital Signs Pulse 53 12/18/24 10:56 BP 110/52 L 12/18/24 10:56 BMI result Body Mass Index 29.7 Const General: comfortable and no acute distress Orientation/consciousness: patient oriented x3 HEENT Other: Unremarkable Head: Yes normal to inspection Neck Neck: Yes normal visual inspection Chest Chest palpation & inspection: normal inspection of the chest Resp Auscultation: clear to auscultation bilaterally Cardio Palpation: normal PMI Heart sounds: S1 normal heart sound present, S2 normal heart sound present, no gallops, no murmurs and no rubs GI Palpation (GI): Soft to palpation Back/Spine/Pelvis Other: unremarkable Skin General skin exam: no rashes or lesions noted Neuro General: patient oriented x3 Extrem General: Yes normal to inspection Psych Mental Status: mental status grossly normal Office Procedures EKG Details: EKG with sinus bradycardia at 53/Min; low-voltage QRS complexes; [place] [id number], Complete Assessment & Plan Assessment & Plan (1) Atherosclerotic cardiovascular disease: Code(s): I25.10 - Atherosclerotic heart disease of [place] coronary artery without angina pectoris Category: Medical Plan: On statins. Variable lipids. In 2020, it was 194. In 2020, it was 76. Last lipids from 2023 was 123. Advised her to forward us the lipids from PCP. She states she is due for them soon. (2) Type 2 diabetes mellitus with unspecified complications: Code(s): E11.8 - Type 2 diabetes mellitus with unspecified complications Category: Medical Plan: Listed to be on insulin. Last hemoglobin A1c from 2023 was 6.6% (3) Essential hypertension: Code(s): I10 - Essential (primary) hypertension Category: Medical Plan: Home diary reviewed. 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 Hence advised her that she can take they Amlodipine in the morning and try to take Losartan at nighttime. That might help the morning blood pressures. (4) Abnormal tilt table test: Code(s): R94.09 - Abnormal results of other function studies of central nervous system Category: Medical Plan: This is by patient history. She states she was put on Propranolol many years ago. No changes. (5) S/P laparoscopic sleeve gastrectomy: Code(s): Z98.84 - Bariatric surgery status Category: Surgical Plan: She did lose a lot of weight but then gained some weight back. Currently, at 160 lb. Plan Discussion Notes During the visit, we discussed the management of hypertension by adjusting the timing of losartan to the evening to potentially improve morning blood pressure readings. We also reviewed the patient's cholesterol management, emphasizing the importance of consistent medication adherence and regular monitoring. Patient was informed and verbally consented to the use of an ambient scribe for clinic note documentation during this visit. Patient Instructions: - Consider taking losartan in the evening to help manage morning blood pressure. - Ensure consistent intake of rosuvastatin and monitor cholesterol levels regularly. Coding Level of Care Code Est Pt Level 4 (13573) Complex EM visit Add On G2211 Diagnoses Atherosclerotic cardiovascular disease I25.10 Type 2 diabetes mellitus with unspecified complications E11.8 Essential hypertension I10 Abnormal tilt table test R94.09 S/P laparoscopic sleeve gastrectomy Z98.84 CPT Codes EKG - CPT: 81799-[id number], Complete ([id number])
[2024-12-18 10:56] VITALS: BP 110/52; PULSE 53; BMI 29.7
--- OUTSIDE RECORDS SUMMARY | 2024-12-18 13:20 | XMS_ITS | Clinical Summary ---
Author Organization [facility] [address] [place] [address] [address] [place] [address] Phone Care Team Providers Care [facility] Coordinator Name Role Phone Claudy Mc MD Primary Care Pr ovider Allergies Active Allergy Reactions Criticality Noted Date Comments Iodine Unknown,Rash High 06/22/2017 Opioids - Morphine Analogues Anaphylaxis,Unknown High 06/22/2017 Penicillin Rash High 05/24/2022 Penicillin G Benzathin,Procain 12/22 Povidone-Iodine Rash Low 12/22/2020 Medications ammonium lactate (AmLactin) 12 % lotion Apply topically if needed for dry skin. 400 g 025 2025 Active amLODIPine (NORVASC) 10 mg tablet Take 1 tablet (10 mg total) by mouth daily. Active calcium carbonate 1,500 mg (600 mg elemental calcium) tablet 022 Active divalproex (DEPAKOTE SPRINKLE) 125 mg capsule Active FLUoxetine (PROzac) 10 mg capsule Take 1 capsule (10 mg total) by mouth 1 (one) time each day in the morning. 024 Active losartan (COZAAR) 50 mg tablet Take 1 tablet (50 mg total) by mouth. 023 Active ondansetron ODT (ZOFRAN-ODT) [address] 1 TABLET ON TOP OF THE TONGUE EVERY 8 HOURS NEEDED Active propranoloL (INDERAL) 10 mg tablet Take 1 tablet (10 mg total) by mouth 2 (two) times a day. 024 Active Symbicort 160-4.5 mcg/actuation inhaler INHALE ONE PUFF BY MOUTH TWICE A DAY (BULK) 10.2 g 5 025 Active albuterol HFA (PROAIR HFA ; PROVENTIL HFA ; VENTOLIN HFA) 90 mcg/actuation inhaler INHALE TWO PUFFS BY MOUTH EVERY 4 HOURS NEEDED FOR COUGH OR WHEEZING (BULK) 8.5 g 5 025 Active polyethylene glycol (Golytely) 236-22.74-6.74 -5.86 gram solution Take 4L by mouth once for one dose. May substitue any PEG. Starting at 6PM the night before your procedure drink 1 8oz glasses at your own pace until you complete half of the gallon. Finish 2nd half of the gallon 5 hours before your procedure. 4000 mL 025 Active bisacodyL (DULCOLAX) 5 mg EC tablet Take 2 tablets by mouth right before beginning bowel prep. See instructions provided by the office 2 tablet 025 Active insulin glargine (LANTUS) 100 unit/mL injection Inject 2 Units under the skin at bedtime. Active montelukast (SINGULAIR) 10 mg tablet TAKE ONE TABLET BY MOUTH EVERY DAY ^1R4 28 tablet 1 025 Active cetirizine (ZyrTEC) 10 mg tablet TAKE ONE TABLET BY MOUTH EVERY DAY ^1R1 30 tablet 025 Active magnesium oxide (MAG-OX) 400 mg (241.3 elemental magnesium) tablet TAKE ONE TABLET BY MOUTH ONCE DAILY ^1R1 30 tablet 1 025 Active rosuvastatin (CRESTOR) 20 mg tablet TAKE ONE TABLET BY MOUTH EVERY DAY ^1R4 90 tablet 025 Active clotrimazole-beta methasone (LOTRISONE) 1-0.05 % cream APPLY TOPICALLY TO AFFECTED AREA(S) TWO TIMES A DAY (BULK) 45 g 1 025 Active omeprazole (PriLOSEC) [address] capsuleIndication s:Gastroesophagea l reflux disease with esophagitis without hemorrhage TAKE ONE CAPSULE BY MOUTH TWICE A DAY - DO NOT CRUSH OR CHEW ^1R1,1R3 60 capsule 1 025 Active bisacodyL (DULCOLAX) 5 mg EC tablet Take 2 tablets by mouth right before beginning bowel prep. See instructions provided by the office 2 tablet 025 Active polyethylene glycol (Golytely) 236-22.74-6.74 -5.86 gram solution Take 4L by mouth once for one dose. May substitue any PEG. Starting at 2PM the day before your procedure drink 1 8oz glasses at your own pace until you complete half of the gallon. Finish 2nd half of the gallon at 8PM. 4000 mL 025 Active fluticasone propionate (FLONASE) 50 mcg/actuation nasal sprayIndications: Chronic rhinitis ADMINISTER 1 SPRAY IN EACH NOSTRIL TWO TIMES A DAY SHAKE GENTLY BEFORE 1ST USE AND PRIME PUMP. AFTER USE CLEAN TIP AND REPLACE CAP (BULK) 16 g 2 025 Active cholecalciferol (VITAMIN D-3) 50 mcg (2,000 unit) capsule TAKE ONE CAPSULE BY MOUTH EVERY DAY ^1R1 30 capsule 2 025 Active clotrimazole-beta methasone (LOTRISONE) 1-0.05 % cream Apply topically 2 (two) times a day for 28 days. 30 g 3 025 2024 Active cholecalciferol (VITAMIN D-3) 50 mcg (2,000 unit) capsule TAKE ONE CAPSULE BY MOUTH EVERY DAY ^1R1 90 capsule 1 025 2024 Discontinued fluticasone propionate (FLONASE) 50 mcg/actuation nasal sprayIndications: Chronic rhinitis Administer 1 spray into each nostril 2 (two) times a day. Shake gently. Before first use, prime pump. After use, clean tip and replace cap. 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 Shake gently. Before first use, prime pump. After use, clean tip and replace cap. Venous insufficiency (chronic) (peripheral) 02/26 Assessment & Plan (05/21/2024 10:23 PM EST): She has venous insufficiency. Needs compression stockings. Has appt with vascular surgery in june Orders: Compression stockings Essential (primary) hypertension 03/24/2024 Assessment & Plan (05/21/2024 10:23 PM EST): Well controlled. Continue amlodipine 10 mg daily, losartan 50mg daily, propranolol 10mg BID. [place] [facility] [place] Cardiomegaly 03/24/2024 Vitamin D deficiency, unspecified 03/24/2024 Assessment & Plan (05/21/2024 10:23 PM EST): Orders: Vitamin D 25 hydroxy; Future Thiamine deficiency 03/24/2024 Type 2 diabetes mellitus wit h neurologic complication ([facility] V24, [facility] V28) 03/24/2024 Assessment & Plan (05/21/2024 10:23 PM EST): Continue insulin regimen. Continue follow up with Dr. Isabel. Will update labs She needs diabetic shoes. Will send message to DME nurse Orders: Microalbumin creatinine urine ratio; Future Hemoglobin A1c; Future Pure hypercholesterolemia 03/24/2024 Assessment & Plan (05/21/2024 10:23 PM EST): Continue crestor Orders: Comprehensive metabolic panel; Future Lipid panel with reflex to direct LDL; Future rosuvastatin (CRESTOR) 10 mg tablet; Take 1 tablet (10 mg total) by mouth at bedtime. Benign neoplasm of colon 03/24/2024 Gastro-esophageal reflux disease with esophagiti s 03/24/2024 Assessment & Plan (05/21/2024 10:23 PM EST): Continue omeprazole Orders: omeprazole (PriLOSEC) [address] capsule; Take 1 capsule (40 mg total) by mouth 2 (two) times a day. Do not crush or chew. Female infertility 03/24/2024 Carpal tunnel syndrome, right upper limb 024 HARPAL (obstructive sleep apnea) 03/24/2024 Assessment & Plan (05/21/2024 10:23 PM EST): Follow up with pulmonology Orders: Ambulatory referral to Pulmonology; Future Meralgia paresthetica, unspecified lower limb Insomnia, unspecified 03/24/2024 Assessment & Plan (05/21/2024 10:23 PM EST): Continue trazodone nighty Anxiety and depression 03/24/2024 Assessment & Plan (05/21/2024 10:23 PM EST): Continue depakote , fluoxetine 10mg QAM for depression/anxiety. Continue follow up with pscyhiatry and [facility] Osteopenia with high risk of fracture 03/24/2024 Assessment & Plan (05/21/2024 10:23 PM EST): Continue ca/vit D daily. Referred to endocrinology for treatment. Will update DXA scan Orders: BD Bone Density DXA Axial Skeleton; Future Vitamin D 25 hydroxy; Future Ambulatory referral to Endocrinology; Future Low back pain 03/24/2024 Cervical disc disorder with radiculopathy 2023 Assessment & Plan (05/21/2024 10:23 PM EST): Orders: Ambulatory referral to Physical Therapy [facility]; Future Unspecified cataract 03/24/2024 Moderate persistent asthma without complication 03/24/2024 Assessment & Plan (05/21/2024 10:23 PM EST): continue symbicort BID, albuterol prn, montelukast 10mg nightly Orders: Ambulatory referral to Pulmonology; Future Chronic obstructive pulmonar y disease (COPD) ([facility] V24, [facility] V28) 03/24/2024 Assessment & Plan (05/21/2024 10:23 PM EST): continue symbicort BID, albuterol prn, montelukast 10mg nightly Orders: Ambulatory referral to Pulmonology; Future Macular degeneration of both eyes 08/31/2023 Neurogenic bladder 10/06/2022 History of NE (myocardial infarction) 06/22/2017 CHF (congestive heart failure) ([facility] V24, [facility] V28) 09/26/2000 Resolved Problems Problem Noted Date Diagnosed Date Resolved Date Noninfectious gastroenteritis and colitis 03/24/2024 05/21/2024 Depression 03/24/2024 05/21/2024 Myalgia 03/24/2024 05/21/2024 Syncope and collapse 03/24/2024 025 Gastroesophageal reflux disease 06/15/2022 09/18/2024 Encounters Date Type Department Care Team Description 12/12/2024 1:15 PM EDT Office Visit Orthopedic Surgery - [place] [address] [facility] [address] [place] [phone] Kolton Renteria DPLuca Tinea pedis of both feet (Primary Dx); Dermatitis; Ingrowing nail; Dermatophytosis of nail; Pain in toe of left foot; Type II diabetes mellitus with peripheral circulatory disorder ([facility] V24, [facility] V28); Diabetic mononeuropathy simplex ([facility] V24, [facility] V28); Pain in toe of right foot 12/10/2024 1:15 PM EDT Office Visit Pulmonology [facility] 175 [facility] [address] [place] [phone] Deandre Muñoz MD Moderate persistent asthma without complication (Primary Dx); HARPAL (obstructive sleep apnea) 11/29/2024 9:47 AM EDT Anesthesia Event [facility] [address] [place] [phone] Carlito Ramirez MD 11/29/2024 8:57 AM EDT - 11/29/2024 11:59 PM EDT Hospital Encounter [facility] [address] [place] [phone] Ruddy Toscano MD Chang, MD Lucius Kemp Sarah, CRNA Personal history of colon polyps, unspecified Discharge Disposition: Home or Self Care 11/22/2024 Telephone Adult Medicine [address] [phone] Smith Goldsmith LPN 11/21/2024 Telephone Adult Medicine [address] [phone] Claudy Mc MD 10/26/2024 Telephone Orthopedic Surgery [facility] [address] [facility] [address] [place] [phone] Kolton Renteria DPM 10/19/2024 1:00 PM EDT Office Visit Vascular Surgery [facility] [address] [facility] [address] [place] [phone] Gracie Kirby PA Varicose veins of leg with swelling, bilateral (Primary Dx); Peripheral venous insufficiency 10/18/2024 10:30 AM EDT Consult Orthopedic Surgery [facility] [address] [facility] [address] [place] [phone] Carmelo Tamayo MD Impingement syndrome of left shoulder (Primary Dx); Chronic left shoulder pain; Myofascial pain 10/05/2024 Billing Patient Not Present Adult Medicine [address] [phone] Claudy Mc MD 09/18/2024 10:45 AM EDT Office Visit Adult [address] [phone] Ct Ly PA Pulmonary emphysema, unspecified emphysema type (CMS/HCC V24, CMS/HCC V28) (Primary Dx); Chronic rhinitis; Type 2 diabetes mellitus with microalbuminuria (CMS/HCC V24, CMS/[facility] V28); Essential (primary) hypertension; Pure hypercholesterolemia; Chronic congestive heart failure, unspecified heart failure type ([facility] V24, [facility] V28); Gastroesophageal reflux disease with esophagitis without hemorrhage; Irritable bowel syndrome with diarrhea; Neurogenic bladder; Anxiety and depression; Chronic left shoulder pain from Last 3 Months Immunizations Name Administration Dates Next Due COVID-19 Seasonal (Novavax) 12yo and older 11/28/2023 Influenza Quadravalent, MDCK , 0.5ml, preservative free (Flucelvax) 6mo and older 11/28/2023,02/08/2023,12/23/2021,01/07 Influenza Quadrivalent, 0.5m l, preservative free (Fluarix; FluLaval; Fluzone) ages 6mo and older (Afluria) 3yo and older 01/10/2019 Influenza trivalent, 0.5mL, preservative free (Fluarix; FluLaval; Fluzone) ages 6mo and older (Afluria) 3 years and older 12/16/2015,01/02/2015,03/13/2014,04/21,01/14/2010 Influenza trivalent, with pr eservative (Fluzone; Afluria) 6mo and older 06/17/2006 Pfizer (ages 12 & older) Biv alent, COVID-19 06/24/2022 Pfizer Covid-19 Bivalent, Or iginal + Ba.1 (Non-US Trademark [email or web address] Bivalent) 06/24/2022 Pneumococcal conjugate 13 va lent (Prevnar 13, PCV13) 2mo and older 01/02/2015 Pneumococcal polysaccharide 23 valent (Pneumovax 23) 2yo and older 12/10/2008,06/17/2006 Tdap Tetanus diptheria acell ular pertussis (Boostrix; Adacel) 7yo and older 10/31/2021 Zoster recombinant (Shingrix ) 19yo and older 06/24/2022,10/31/2021 Surgical History Surgery Date Site/Laterality Comments COLONOSCOPY PROCEDURE: HISTORICAL COLONOSCOPY TUBAL LIGATION PROCEDURE: HISTORICAL TUBAL LIGATION CARPAL TUNNEL RELEASE 04/28/2022 - 05/25/2022 Right ROTATOR CUFF REPAIR Medical History Medical History Date Comments Anxiety state DX:Anxiety state Asthma DX:Asthma Depressive disorder DX:Depressiv e disorder Diabetes mellitus type 2, co ntrolled, with complications ([facility] V24, [facility] V28) DX:Diabetes mellitus type 2, controlled, with complications ([facility]) Colonic benign neoplasm 01/14/2015 DX:Colon ic benign neoplasm Type 2 diabetes mellitus ([facility] V24, [facility] V28) 02/01/2013 DX:Type 2 diabetes mellitus (HCC) Gastroenteritis 06/21/2018 DX:Gastroenterit is DJD (degenerative joint dise ase) of cervical spine 09/02/2023 DX:DJD (degenerative joint d isease) of cervical spine Myalgia 03/24/2024 Syncope and collapse 03/24/2024 Noninfectious gastroenteriti s and colitis 03/24/2024 Depression 03/24/2024 Irritable bowel syndrome with diarrhea 09/18/2024 Family History Medical History Relation Name Comments Breast cancer Other pat aunt Relation Name Status Comments Other pat aunt Alive Social History Tobacco Use Types Packs/Day Years Used Date Smoking Tobacco: Former Smokeless Tobacco: Never Tobacco Cessation:Counseling Given: Not Answered Alcohol Use Standard Drinks/Week Comments Yes 0 (1 standard drink = 0.6 oz pur e alcohol) Interpersonal Safety Answer Date Record ed Physical Abuse 11/29/2024 Verbal Abuse 11/29/2024 Comments No Sex and Gender Information Value Date Recorded Sex Assigned at Female 11/29/2024 8:55 AM EDT Legal Sex Female 10:43 AM EST Gender Identity Female 11/29/2024 8:55 AM EDT Sexual Orientation Straight 11/29/2024 8: 55 AM EDT Obstetrics History Last Filed Vital Signs Vital Sign Reading Time Taken Comments Blood Pressure 118/68 12/10/2024 1:30 PM EDT Pulse 61 12/10/2024 1:30 PM EDT Temperature 36.6 C (97.8 F) 12/10/2024 1:30 PM EDT Respiratory Rate 16 12/10/2024 1:30 PM EDT Oxygen Saturation 97% 12/10/2024 1:30 PM EDT Inhaled Oxygen Concentration - - Weight 71.3 kg (157 lb 3.2 oz) 12/10/2024 1:30 P M EDT Height 154.9 cm (5' 1 ) 12/10/2024 1:30 PM EDT Body Mass Index 29.7 12/10/2024 1:30 PM EDT Plan of Treatment Upcoming Encounters Date Type Department Care Team (Late st Contact Info) Description 12/24/2024 11:00 AM EDT Appointment Radiology Department [address] [phone] 01/08/2025 10:30 AM EDT Office Visit Adult Medicine [address] [phone] Ct Ly PA [address] [place] [address] 01/23/2025 1:00 PM EDT Office Visit Orthopedic Surgery [facility] [address] [facility] [address] [place] [phone] Kolton Renteria DPM 175 [facility] [address] [place] [phone] 06/03/2025 1:30 PM EDT Office Visit Pulmonology [facility] 175 [facility] [address] [place] [phone] Deandre Muñoz MD 175 [facility] [address] [place] [address] Health Maintenance Due Date Last Done Comments RSV Immunization Adult Patients (1 - Risk 60-74 years 1-dose series) 2018 Pneumococcal Vaccine: 50+ Years (3 of 3 - PCV20 or PCV21) 01/03/2020 01/02/2015, 12/10/2008, 06/17/2006 Medicare Annual Wellness Visit 03/06/2022 Social Influencers of Health Screening 03/06/2022 Falls Risk Assessment 10/15/2023 Depression Screening 03/28/2024 COVID-19 Vaccine ( season) 2024 11/28/2023, 06/24/2022, 08/21/2020, Additional history exists Influenza Vaccine (#1) 2024 , 02/08/2023, 12/23/2021, Additional history exists Diabetes: Blood Sugar Control Test (HGBA1C) 03/22/2025 09/20/2024, 05/24/2024, 12/21/2023, Additional history exists Diabetes: Annual Foot Exam 04/11/2025 04/11/2024 Diabetes: Annual Urine Albumin-Creatinine Ratio (uACR) 05/24/2025 05/24/2024, 11/05/2022, 06/15/2022 Diabetes: Annual GFR (Glomerular Filtration Rate) 09/20/2025 09/20/2024, 05/24/2024, 11/10/2023, Additional history exists Hypertension/CHF/CAD Annual BMP Blood Test 09/20/2025 09/20/2024, 05/24/2024, 11/10/2023, Additional history exists Diabetes: Annual Retina Eye Exam 11/01/2025 11/01/2024, 06/14/2024, 03/15/2024, Additional history exists Breast Cancer Screening 12/04/2025 12/05/19 24, 12/05/2023, 10/07/2022, Additional history exists Cholesterol Screening (Lipid Panel) 09/20/2029 09/20/2024, 05/24/2024, 11/18/2023 DTaP,Tdap,and Td Vaccines (2 - Td or Tdap) 11/01/2031 10/31/2021 Osteoporosis Screening (Bone Density Screening) 06/12/2034 06/12/2024, 10/05/2021 Colorectal Cancer Screening: Colonoscopy 11/29/2034 11/29/2024, 05/22/2024 Zoster Vaccines Completed 06/24/2022, 10/31/2021 Hepatitis C Screening Completed 05/24/2024 HIB Vaccines Aged Out No longer eligi ble based on patient's age to complete this topic HPV Vaccines Aged Out No longer eligi ble based on patient's age to complete this topic Hepatitis A Vaccines Aged Out No long er eligible based on patient's age to complete this topic Hepatitis B Vaccines Aged Out No long er eligible based on patient's age to complete this topic IPV Vaccines Aged Out No longer eligi ble based on patient's age to complete this topic MMR Vaccines Aged Out No longer eligi ble based on patient's age to complete this topic Meningococcal ACWY Vaccine Aged Out N o longer eligible based on patient's age to complete this topic Meningococcal B Vaccine Aged Out No l onger eligible based on patient's age to complete this topic RSV Immunization Patients Under 20 months Aged Out No longer eligible based on patient's age to complete this topic Varicella Vaccines Aged Out No longer eligible based on patient's age to complete this topic Procedures Procedure Name Priority Date/Time Associated Diagnosis Comments COLONOSCOPY Routine 11/29/2024 10:06 AM EDT Personal history of colon polyps, unspecified TISSUE EXAM Routine 11/29/2024 9:56 AM EDT Personal history of colon polyps, unspecified POCT GLUCOSE BLOOD Routine 11/29/2024 9: 36 AM EDT XR SHOULDER 2+ VIEWS RIGHT Routine 10/18/2024 11:30 AM EDT Pain XR SHOULDER 2+ VIEWS LEFT Routine 10/18/2024 10:36 AM EDT Pain ME ARTHROCENTESIS/ASPIR ATION/INJECTION MAJOR JOINT/BURSA W/O U/S GUIDANCE Routine 10/18/2024 10:30 AM EDT Impingement syndrome of left shoulder Myofascial pain BASIC METABOLIC PANEL Routine 09/20/2024 7:43 AM EDT Type 2 diabetes mellitus with microalbuminuria (CMS/HCC V24, CMS/HCC V28) HEMOGLOBIN A1C Routine 09/20/2024 7:43 AM EDT Type 2 diabetes mellitus with microalbuminuria (CMS/HCC V24, CMS/HCC V28) LIPID PANEL WITH REFLEX TO DIRECT LDL Routine 09/20/2024 7:43 AM EDT Type 2 diabetes mellitus with microalbuminuria (CMS/HCC V24, CMS/HCC V28) BD BONE DENSITY DXA AXIAL SKELETON Routine 06/12/2024 10:08 AM EDT Osteopenia with high risk of fracture HEPATITIS C ANTIBODY Routine 05/24/2024 10:34 AM EST Need for hepatitis C screening test MICROALBUMIN CREATININE URINE RATIO Routine 05/24/2024 10:34 AM EST Type 2 diabetes mellitus with diabetic neuropathy, unspecified whether parts counterman insulin use (CMS/HCC V24, CMS/HCC V28) SCREENING MAMMOGRAPHY BI 2-VIEW BREAST INC CAD Routine 12/05/2023 10:53 AM EDT Encounter for screening mammogram for malignant neoplasm of breast from Last 3 Months or Most Recently Relevant to Health Maintenance Results * COLONOSCOPY Anesthesia - MAC; [facility] ENDOSCOPY (11/29/2024 10:06 AM EDT) Anatomical Region Laterality Modality Other 11/29/2024 9:40 AM EDT Impressions 11/29/2024 10:07 AM EDT - Diverticulosis in the sigmoid colon. - One 4 mm polyp in the sigmoid colon, removed with a cold snare. Resected and retrieved. Recommendation: - Repeat colonoscopy in 2 months for surveillance. - Await pathology results. - Use fiber, for example Citrucel, Fibercon, Konsyl or Metamucil. Narrative 11/29/2024 10:07 AM EDT [facility] GI Patient Name: Cheyenne Monaco Procedure Date: 11/29/2024 9:40 AM Date of : 1960 Age: 64 Gender: Female Note Status: Finalized Attending MD: Ruddy Toscano MD, Procedure Date No Time: 11/29/2024 Procedure: Colonoscopy Indications: High risk colon cancer surveillance: Personal history of colonic polyps Providers: Ruddy Toscano MD Referring MD: Ruddy Toscano MD Medicines: Propofol per Anesthesia Complications: No immediate complications. Estimated Blood Loss: Estimated blood loss was minimal. Procedure: Pre-Anesthesia Assessment: - ASA Grade Assessment: III - A patient with severe systemic disease. After I obtained informed consent, the scope was passed under direct vision. Throughout the procedure, the patient's blood pressure, pulse, and oxygen saturations were monitored continuously.The Colonoscope was introduced through the anus and advanced to the cecum, identified by appendiceal orifice and ileocecal valve. The colonoscopy was performed without difficulty. The patient tolerated the procedure well. The quality of the bowel preparation was good. Findings: The perianal and digital rectal examinations were normal. A few diverticula were found in the sigmoid colon. A 4 mm polyp was found in the sigmoid colon. The polyp was sessile. The polyp was removed with a cold snare. Resection and retrieval were complete. Estimated blood loss was minimal. Procedure Code(s): --- Professional --- 10633, Colonoscopy, flexible; with removal of tumor(s), polyp(s), or other lesion(s) by snare technique Diagnosis Code(s): --- Professional --- Z86.010, Personal history of colonic polyps D12.5, Benign neoplasm of sigmoid colon K57.30, Diverticulosis of large intestine without perforation or abscess without bleeding CPT copyright 2020 [employer]. All rights reserved. The codes documented in this report are preliminary and upon artist and repertoire manager review may be revised to meet current compliance requirements. Ruddy Toscano MD 11/29/2024 10:07:30 AM This report has been signed electronically.Ruddy Toscano MD Number of Addenda: 0 Note Initiated On: 11/29/2024 9:40 AM Scope In: Scope Out: Endoscopy Department at [facility] - [address] [place] [phone] Procedure Note Ruddy Toscano MD - 11/29/2024 [facility] GI Patient Name: Cheyenne Monaco Procedure Date: 11/29/2024 9:40 AM Date of : 1960 Age: 64 Gender: Female Note Status: Finalized Attending MD: Ruddy Toscano MD, Procedure Date No Time: 11/29/2024 Procedure: Colonoscopy Indications: High risk colon cancer surveillance: Personalhistory of colonic polyps Providers: Ruddy Toscano MD Referring MD: Ruddy Toscano MD Medicines: Propofol per Anesthesia Complications: No immediate complications. Estimated Blood Loss: Estimated blood loss was minimal. Procedure: Pre-Anesthesia Assessment: - ASA Grade Assessment: III - A patient with severe systemic disease. After I obtained informed consent, the scope was passed under direct vision. Throughout theprocedure, the patient's blood pressure, pulse, and oxygen saturations were monitored continuously.The Colonoscope was introduced through the anus and advanced to the cecum, identified by appendiceal orifice and ileocecal valve. The colonoscopy was performed without difficulty. The patient tolerated the procedure well. The quality of the bowel preparation was good. Findings: The perianal and digital rectal examinations were normal. A few diverticula were found in the sigmoidcolon. A 4 mm polyp was found in the sigmoid colon. Thepolyp was sessile. The polyp was removed with a coldsnare. Resection and retrieval were complete. Estimatedblood loss was minimal. Procedure Code(s): --- Professional --- 00495, Colonoscopy, flexible; with removal of tumor(s), polyp(s), or other lesion(s) by snare technique Diagnosis Code(s): --- Professional --- Z86.010, Personal history of colonic polyps D12.5, Benign neoplasm of sigmoid colon K57.30, Diverticulosis of large intestine without perforation or abscess without bleeding CPT copyright 2020 [employer]. All rights reserved. The codes documented in this report are preliminary and upon artist and repertoire manager reviewmay be revised to meet current compliance requirements. Ruddy Toscano MD 11/29/2024 10:07:30 AM This report has been signed electronically.Ruddy Toscano MD Number of Addenda: 0 Note Initiated On: 11/29/2024 9:40 AM Scope In: Scope Out: Endoscopy Department at [facility] - [address] [place] [phone] IMPRESSION: - Diverticulosis in the sigmoid colon. - One 4 mm polyp in the sigmoid colon, removed witha cold snare. Resected and retrieved. Recommendation: - Repeat colonoscopy in 2 months forsurveillance. - Await pathology results. - Use fiber, for example Citrucel, Fibercon, Konsylor Metamucil. us Ruddy Toscano MD GI~PROCEDURE ORDERABLES Final Re sult * Tissue exam (11/29/2024 9:56 AM EDT) Final Diagnosis Polyp, sigmoid colon, polypectomy: - Colonic mucosa with focal features suggestive of a hyperplastic polyp. - A cluster of prominent blood vessels is noted in the submucosa. Note: Multiple additional levels are examined. 12/03/2024 12:27 PM EDT [facility] Gross Description A. Large Intestine, Sigmoid Colon, polyp x1 via cold snare: Labeled polyp x 1 sig colon . Received in green-barnes formalin is a soft, barnes to red, 0.25 cm in greatest diameter polypoid tissue with minimal attached fecal/debris, which is inked green, wrapped in paper and submitted in toto in one cassette, one piece, multiple levels. TS 12/03/2024 12:27 PM EDT [facility] Disclaimer Unless otherwise specified, all tissue is 10% NB formalin fixed and paraffin embedded. 12/03/2024 12:27 PM EDT [facility] Tissue Sigmoid colon structure / Unknown 11/29/2024 9:56 AM EDT 11/29/2024 10:29 AM EDT Ruddy Toscano MD LAB PATHOLOGY ORDERABLES Final R esult Performing Organization Address City/State/[facility] Co de Phone Number [facility] [address] [place] [address], * (ABNORMAL) POCT Glucose, blood (11/29/2024 9:36 AM EDT) Glucose POCT 150(H) 70 - 100 mg/dL 11/29/2024 9:37 AM EDT [facility] Blood Capillary blood specimen / Unknown 11/29/2024 9:36 AM EDT 11/29/2024 9:38 AM EDT Rajani Kan CRNA LAB POINT OF CARE TE ST DOCKED DEVICE UNSOLICITED RESULTS Final Result [facility] [address] [place] [address], [place] [phone] * XR Shoulder 2+ Views Right (10/18/2024 11:30 AM EDT) Anatomical Region Laterality Modality Upper Extremities, Shoulder Right Comp uted Radiography Narrative 10/18/2024 11:51 AM EDT X-rays of the right shoulder 4 view show no evidence of fracture or dislocation, there are degenerative changes with subchondral sclerosis of the humeral head and glenoid, additional degenerative changes at acromioclavicular joint. Soft tissue shadows appear normal. Impression: Mild glenohumeral and acromioclavicular joint degenerative changes. us Carmelo Tamayo MD IMG XR PROCEDURES Final Result * XR Shoulder 2+ Views Left (10/18/2024 10:36 AM EDT) Anatomical Region Laterality Modality Upper Extremities, Shoulder Left Comp uted Radiography Narrative 10/18/2024 11:50 AM EDT 4 view x-rays of the left shoulder show degenerative changes at the acromioclavicular joint with soft tissue calcification, there are mild degenerative changes at the glenohumeral joint with joint space narrowing. No acute fractures or dislocations. Impression: Moderate AC joint arthritis and mild glenohumeral degenerative changes us Carmelo Tamayo MD IMG XR PROCEDURES Final Result * ME ARTHROCENTESIS/ASPIRATION/INJECTION MAJOR JOINT/BURSA W/O U/S GUIDANCE (10/18/2024 10:30 AM EDT) Carmelo Melo MD - 10/18/2024 10:30 AM EDT Carmelo Tamayo MD 10/18/2024 9:53 PM L Inj/Asp: L subacromial bursa Indications: pain Details: 22 G needle, posterior approach Medications: 40 mg triamcinolone acetonide 40 mg/mL Outcome: tolerated well, no immediate complications Site was prepped in standard fashion using alcohol swab, sterile technique was used to perform the injection, the patient tolerated the procedure well and a band-aid dressing was applied Informed Consent: Site: Left subacromial Laterality: Left Relevant images/test results available and reviewed: yes Health status cleared: Yes Procedure/treatment, purpose, treatment alternatives, risks/potential complications and benefits explained: yes Risk/complications/benefits details: Risk/complications/benefits details: Risks and benefits of corticosteroid injection were discussed, including risk of pain, bleeding, infection, tissue attenuation, tendon rupture, changes in skin color, and injury to surrounding structures such as arteries, veins and nerves. We also discussed the patient may develop worsening pain for a few days before having improvement in their symptoms. Patient questions answered: yes Patient agrees, verbalizes understanding, and wants to proceed: yes Consent given by: Patient Informed consent discussion completed by Physician/ROOSE[place]T with patient: Verbal Pre-procedure timeout performed: yes us Carmelo Tamayo MD IN CLINIC/BEDSIDE ORDERABLES Fin al Result * Lipid panel with reflex to direct LDL (09/20/2024 7:43 AM EDT) Cholesterol 200 0 - 200 mg/dL LAB CHEMISTRY METHOD 09/20/2024 10:55 AM [facility] Triglycerides 81 0 - 150 mg/dL LAB CHEMISTRY METHOD 09/20/2024 10:55 AM [facility] HDL 97 >=40 mg/dL LAB CHEMISTRY METHOD 09/20/2024 10:55 AM [facility] LDL Calculated 87 0 - 100 mg/dL LAB CHEMISTRY METHOD 09/20/2024 10:55 AM [facility] VLDL Cholesterol Joe 16.2 mg/dL LAB CHEMISTRY METHOD 09/20/2024 10:55 AM [facility] Non HDL Chol. (LDL+VLDL) 103 <145 mg/dL LAB CHEMISTRY METHOD 09/20/2024 10:55 AM [facility] Chol/HDL Ratio 2.1 0.0 - 4.4 LAB CHEMISTRY METHOD 09/20/2024 10:55 AM [facility] Blood Venous blood specimen / Unknown Venipuncture / Unknown 09/20/2024 7:43 AM EDT 09/20/2024 7:[address] [facility]FT LAB BLOOD ORDERABLES Final Re sult Performing Organization Address [facility]/State/ZIP Co de Phone Number [facility] [address] [place] [address], [place] [phone] * (ABNORMAL) Hemoglobin A1c (09/20/2024 7:43 AM EDT) Pathologist [facility] Hemoglobin A1C 6.7(H) <6.5 % LAB CHEMISTRY METHOD 09/20/2024 1:40 PM EDT [facility] Mean Bld Glu Estim. 146 mg/dL LAB CHEMISTRY METHOD 09/20/2024 1:40 PM EDT [facility] Blood Venous blood specimen / Unknown Venipuncture / Unknown 09/20/2024 7:43 AM EDT 09/20/2024 7:[address] [facility]FT LAB BLOOD ORDERABLES Final Re sult Performing Organization Address City/[facility]/ZIP Co de Phone Number [facility] [address] [place] [address], [place] [phone] * (ABNORMAL) Basic metabolic panel (09/20/2024 7:43 AM EDT) [facility] Sodium 143 133 - 145 mmol/L LAB CHEMISTRY METHOD 09/20/2024 10:55 AM EDT [facility] Potassium 4.1 3.5 - 5.5 mmol/L LAB CHEMISTRY METHOD 09/20/2024 10:55 AM EDT [facility] Chloride 108 96 - 110 mmol/L LAB CHEMISTRY METHOD 09/20/2024 10:55 AM EDT [facility] CO2 29 21 - 32 mmol/L LAB CHEMISTRY METHOD 09/20/2024 10:55 AM EDT [facility] Anion Gap 6 3 - 11 LAB CHEMISTRY METHOD 09/20/2024 10:55 AM EDT [facility] Glucose 118(H) 70 - 100 mg/dL LAB CHEMISTRY METHOD 09/20/2024 10:55 AM EDT [facility] BUN 17 5 - 25 mg/dL LAB CHEMISTRY METHOD 09/20/2024 10:55 AM EDT [facility] Creatinine 0.80 0.50 - 1.10 mg/dL LAB CHEMISTRY METHOD 09/20/2024 10:55 AM EDT [facility] eGFR 82 >=60 mL/min/1. 73m2 LAB CHEMISTRY METHOD 09/20/2024 10:55 AM EDT [facility] Comment:Calculation based on the Chronic Kidney Disease Epidemiology Collaboration (CKD-EPI) equation refit without adjustment for race. BUN/Creatinine Ratio 21.3 LAB CHEMISTRY METHOD 09/20/2024 10:55 AM EDT [facility] Calcium 9.2 8.5 - 10.5 mg/dL LAB CHEMISTRY METHOD 09/20/2024 10:55 AM EDT [facility] Blood Venous blood specimen / Unknown Venipuncture / Unknown 09/20/2024 7:43 AM EDT 09/20/2024 7:[address] [facility]FT LAB BLOOD ORDERABLES Final Re sult [facility] [address] [place] [address], * BD Bone Density DXA Axial Skeleton (06/12/2024 10:08 AM EDT) Anatomical Region Laterality Modality Wrist, Hip, L-spine Bone Densito metry 06/12/2024 10:4 0 AM EDT Impressions 06/12/2024 10:41 AM EDT 1. Osteopenia. 2. FRAX analysis yields a 10-year probability of major osteoporotic fracture of 29.7% and a 10-year probability of hip fracture of 6.6%. Code 33377 -------- FINAL REPORT -------- Dictated By: Randy Bennett Dictated Date: 06/12/2024 10:40 ET Assigned Physician: Randy Bennett Reviewed and Electronically Signed By: Randy Bennett Signed Date: 06/12/2024 10:41 ET Workstation ID: [id number] Transcribed By: Self Edit Transcribed Date: 06/12/2024 10:40 ET Narrative 06/12/2024 10:41 AM EDT HISTORY: The patient is a 63-year-old postmenopausal female on chronic glucocorticoid therapy, with clinical concern for metabolic bone disease. FINDINGS: Dual energy x-ray absorptiometry of the lumbar spine and femurs is performed. The mean bone mineral density at L1-3 is 0.970 gm/cm2 which is 83% of that of young normals and 97% of that of age matched controls. This yields a T-score of -1.7 and a Z-score of -0.3 which is diagnostic of osteopenia. The mean bone mineral density of the femurs bilaterally is 0.896 gm/cm2 which is 89% of that of young normals and 103% of that of age matched controls. This yields a T-score of -0.9 and a Z-score of 0.2 and there is therefore no evidence of osteoporosis or osteopenia here. However, the T-score of the right femoral neck is -2.3 and that of the left femoral neck is -2.2 which is diagnostic of osteopenia. Procedure Note Randy Bennett MD - 06/12/2024 HISTORY: The patient is a 63-year-old postmenopausal female on chronicglucocorticoid therapy, with clinical concern for metabolic bonedisease. FINDINGS: Dual energy x-ray absorptiometry of the lumbar spine and femursis performed. The mean bone mineral density at L1-3 is 0.970 gm/cm2 whichis 83% of that of young normals and 97% of that of age matched controls.This yields a T-score of -1.7 and a Z-score of -0.3 which is diagnostic ofosteopenia. The mean bone mineral density of the femurs bilaterally is 0.896 gm/bf7xmotc is 89% of that of young normals and 103% of that of age matchedcontrols. This yields a T-score of -0.9 and a Z-score of 0.2 and there istherefore no evidence of osteoporosis or osteopenia here. However, theT-score of the right femoral neck is -2.3 and that of the left femoralneck is -2.2 which is diagnostic of osteopenia. IMPRESSION: 1. Osteopenia. 2. FRAX analysis yields a 10-year probability of major osteoporoticfracture of 29.7% and a 10-year probability of hip fracture of 6.6%. Code 74856 -------- FINAL REPORT -------- Dictated By: Randy Bennett Dictated Date: 06/12/2024 10:40 ET Assigned Physician: Randy Bennett Reviewed and Electronically Signed By: Randy Bennett Signed Date: 06/12/2024 10:41 ET Workstation ID: [id number] Transcribed By: Self Edit Transcribed Date: 06/12/2024 10:40 ET Claudy Mc MD IMG DXA PROCEDUR ES Final Result * Hepatitis C antibody (05/24/2024 10:34 AM EST) [facility] Hepatitis C Antibody Negative Negative LAB CHEMISTRY METHOD 05/24/2024 4:49 PM EST [facility] Blood Venous blood specimen / Unknown Venipuncture / Unknown 05/24/2024 10:34 AM EST 05/24/2024 10:34 AM EST Claudy Mc MD LAB BLOOD ORDERA BLES Final Result [facility] [address] [place] [address], [place] [phone] * (ABNORMAL) Microalbumin creatinine urine ratio (05/24/2024 10:34 AM EST) [facility] Creatinine, Urine 105.0 mg/dL LAB CHEMISTRY METHOD 05/24/2024 5:37 PM EST [facility] Microalb, Ur 38.4(H) 0.0 - 29.0 mg/L LAB CHEMISTRY METHOD 05/24/2024 5:37 PM EST [facility] Microalb/Crea t Ratio 37(H) <30 mg/g creat LAB CHEMISTRY METHOD 05/24/2024 5:37 PM EST [facility] Urine Urine specimen obtained by clean catch procedure / Unknown Non-blood Collection / Unknown 05/24/2024 10:34 AM EST 05/24/2024 10:34 AM EST Claudy Mc MD LAB URINE ORDERA BLES Final Result [facility] [address] [place] [address], * SCREENING MAMMOGRAPHY BI 2-VIEW BREAST INC CAD (12/05/2023 10:53 AM EDT) Anatomical Region Laterality Modality Radiographic Aneta ging 10/07/2022 1:00 PM EDT Narrative 12/05/2023 2:46 PM EDT This is a summary report. The complete report is available in the patient's medical record. If you cannot access the medical record, please contact the sending organization for a detailed fax or copy. Full field digital screening tomosynthesis mammography, reviewed with CAD and compared to previous mammograms of 11/02/2019, 10/05/2021, and 10/07/2022. The breasts are composed of fatty and fibroglandular tissue. No suspicious mass, architectural distortion or suspicious calcifications are identified. IMPRESSION: : No mammographic evidence of malignancy. BIRADS 1-Negative; N. 5 year breast cancer risk assessment 1.5 % Lifetime breast cancer risk assessment 6.0 % Breast cancer risk category Low (<15%) Procedure Note Tiffany Goldstein MD - 01/11/2024 This is a summary report. The complete report is available in thepatient's medical record. If you cannot access the medical record, pleasecontact the sending organization for a detailed fax or copy. Full field digital screening tomosynthesis mammography, reviewed with Jean Claude compared to previous mammograms of 11/02/2019, 10/05/2021, and 10/07/2022.The breasts are composed of fatty and fibroglandular tissue. Nosuspicious mass, architectural distortion or suspicious calcifications areidentified. IMPRESSION: : No mammographic evidence of malignancy. BIRADS 1-Negative; N. 5 year breast cancer risk assessment 1.5 % Lifetime breast cancer risk assessment 6.0 % Breast cancer risk category Low (<15%) Emma Win DO IMG XR PROCEDURES Final Result from Last 3 Months or Most Recently Relevant to Health Maintenance Insurance [facility] MEDIC[facility] Member Subscriber Plan / Payer (Ef fective 2018-Present) Name:CHEYENNE MONACO Relation to Subscriber:Self Name:Cheyenne Monaco Payer ID:[id number] Group ID:[id number] Type:Not on file Address: [place] [address] [address] [phone] Advance Directives Documents on File Type Date Recorded Patient Gear Inspector Expl anation Health Care Decision (hx) 06/08/2017 AD RANGEL DIRECTIVE Health Care Decision (hx) 06/08/2017 AD RANGEL DIRECTIVE Health Care Decision (hx) 06/08/2017 AD RANGEL DIRECTIVE Health Care Decision (hx) 06/08/2017 AD RANGEL DIRECTIVE Health Care Decision (hx) 06/08/2017 AD RANGEL DIRECTIVE Health Care Decision (hx) 06/08/2017 AD RANGEL DIRECTIVE Health Care Decision (hx) 06/08/2017 AD RANGEL DIRECTIVE Health Care Decision (hx) 06/08/2017 AD RANGEL DIRECTIVE Health Care Decision (hx) 06/08/2017 AD RANGEL DIRECTIVE Health Care Decision (hx) 06/08/2017 AD RANGEL DIRECTIVE Health Care Decision (hx) 06/08/2017 AD RANGEL DIRECTIVE Health Care Decision (hx) 06/08/2017 AD RANGEL DIRECTIVE Care Teams Hereditary Cancer Program Coordinator Relationship Specialty Start Date End Date Claudy Mc MD [address] [place] [phone] PCP - General 07/26/23
--- OUTSIDE RECORDS SUMMARY | 2024-12-18 13:20 | XMS_ITS | Clinical Summary ---
Author Organization [facility] Address [address] [place] [id number] Phone Care Team Providers Care Plumber Cub Name Role Phone Juan Antonio Wilson MD Unavailable [phone] Claudy Mc MD Primary Care Pr ovider Allergies Active Allergy Reactions Criticality Noted Date Comments Povidone-Iodine Rash Low 12/22/2020 Hydrocodone-Acetaminophen Unknown 09/21/2024 Iodine Rash Low 12/10/2021 Meperidine Anaphylaxis High 12/10/2021 Opioids - Morphine Analogues Anaphylaxis High 2020 Penicillin Anaphylaxis High 12/10/2021 Penicillin G Benzathin,Procain 12/22 Medications divalproex (DEPAKOTE) 125 mg sprinkle capsule Take 250 mg by mouth 2 (two) times a day. Active traZODone (DESYREL) 50 MG tablet Take 25-50 mg by mouth nightly at bedtime as needed. Active MULTIVITAMIN ORAL Take by mouth daily. Active rosuvastatin (CRESTOR) 10 MG tablet Take 10 mg by mouth nightly at bedtime. Active propranoloL (INDERAL) 10 MG immediate release tablet Take 10 mg by mouth 2 (two) times a day. 10/14/19 Active albuterol 90 mcg/actuation inhaler Inhale 2 puffs into the lungs as needed. 12/10/19 22 Active ammonium lactate (AMLACTIN) 12 % cream 12/09/19 22 Active calcium carbonate (OS-JONNATHAN) 1,500 mg (600 mg elemental) tablet 12/10/19 22 Active cetirizine (ZYRTEC) 10 MG tablet Take 10 mg by mouth daily. 10/14/19 21 Active fluticasone propionate (FLONASE) 50 mcg/actuation nasal spray as needed. 12/10/19 22 Active BREO ELLIPTA 100-25 mcg/dose inhaler as needed. 12/10/19 22 Active montelukast (SINGULAIR) 10 mg tablet Take 10 mg by mouth nightly at bedtime. 10/14/19 21 Active omeprazole (PRILOSEC) 40 MG capsule Take 40 mg by mouth 2 (two) times a day. 10/14/19 21 Active biotin-keratin 10,000-100 mcg-mg Tab 01/16/20 Active SYMBICORT 160-4.5 mcg/actuation inhaler Inhale 2 puffs into the lungs 2 (two) times a day. 08/29/19 23 Active clotrimazole-be tamethasone (LOTRISONE) cream clotrimazole-betam ethasone 1 %-0.05 % topical cream Active clotrimazole (LOTRIMIN) 1 % cream Apply 1 % topically daily. Active losartan (COZAAR) 50 MG tablet Take 50 mg by mouth daily. 10/09/19 23 Active FREESTYLE LORY 2 SENSOR kitIndications: Type 2 diabetes mellitus with retinopathy, with long-term current use of insulin, macular edema presence unspecified, unspecified laterality, unspecified retinopathy severity TO MONITOR BLOOD GLUCOSE, DX E11.319 ON INSULIN, TO CHANGE THE SENSOR EVERY 14 DAYS 2 kit 11 10/10/19 24 Active amLODIPine (NORVASC) 10 MG tablet Take 10 mg by mouth nightly at bedtime. Active alcohol PadM APPLY TOPICALLY FOUR TIMES A DAY (BULK) 400 each 3 06/21/19 25 Active blood sugar diagnostic (FREESTYLE PRECISION RODOLFO STRIPS) Strp stripsIndicatio ns:Type 2 diabetes mellitus with retinopathy, with long-term current use of insulin, macular edema presence unspecified, unspecified laterality, unspecified retinopathy severity Use as directed to test glucose once daily 100 strip 3 06/27/19 25 Active ibuprofen (ADVIL,MOTRIN) 600 MG tablet Take 1 tablet (600 mg total) by mouth every 6 (six) hours as needed for pain (specific location in comments). 20 tablet 06/28/19 25 Active chlorhexidine (PERIDEX) 0.12 % solution Use as directed 15 mL in the mouth or throat 2 (two) times a day. 120 mL 06/28/19 25 Active insulin aspart U-100 (NOVOLOG FLEXPEN U-100 INSULIN) 100 unit/mL (3 mL) injection penIndications: Type 2 diabetes mellitus with retinopathy, with long-term current use of insulin, macular edema presence unspecified, unspecified laterality, unspecified retinopathy severity 0-5 units subcutaneously AC meals 3x/day, plus 2 units to prime the pen with each dose 30 mL 3 09/22/19 25 Active LANTUS SOLOSTAR U-100 INSULIN 100 unit/mL (3 mL) InPn injection penIndications: Type 2 diabetes mellitus with retinopathy, with long-term current use of insulin, macular edema presence unspecified, unspecified laterality, unspecified retinopathy severity Inject 4 Units under the skin nightly at bedtime. 15 mL 3 09/22/19 25 Active FREESTYLE LORY 2 PLUS SENSOR Janette 1 each by Miscellaneous route every 15 (fifteen) days. 6 each 3 09/22/19 25 Active BD INSULIN PEN NEEDLE UF SHORT 31 gauge x 5/16 NdleIndications :Type 2 diabetes mellitus with retinopathy, with long-term current use of insulin, macular edema presence unspecified, unspecified laterality, unspecified retinopathy severity USE TO INECT INSULIN UP TO FOUR TIMES A DAY (BULK) 400 each 3 10/17/19 25 Active dorzolamide-cherri oloL (COSOPT) 22.3-6.8 mg/mL ophthalmic solution Place 1 drop into the right eye 2 (two) times a day. 10 mL 12 11/02/19 25 Active Active Problems Problem Noted Date Diagnosed Date Urinary urgency 05/13/2023 Assessment & Plan (05/17/2023 10:30 AM EST): Will order a UA today as has been dealing with urinary urgency and frequency for several days Anxiety 12/21/2022 12/21/2022 Female infertility 12/21/2022 12/21/2022 Obstructive sleep apnea syndrome 06/15/2022 Gastroesophageal reflux disease 06/15/2022 Type 2 diabetes mellitus wit h retinopathy, with long-term current use of insulin 06/15/2022 Assessment & Plan (09/21/2024 11:23 AM EDT): Control is reasonable/good based upon the patient's freestyle lory 2 sensor download. No frequent or severe hypoglycemia. She will have occasional lows trying to correct highs , she will have something to correct and then is fine. Will maintain her insulin dosing. Continue to work on eating healthy and being active. To call or message with any issues managing her glucose levels. Up to date with [facility]. Labs reviewed from PCP Assessment & Plan (06/21/2024 12:53 PM EDT): Up to date w/ ophtho in [place]. Assessment & Plan (03/07/2024 12:48 PM EST): Up to date with [facility] Assessment & Plan (12/01/2023 12:48 PM EDT): Up to date w/ ophtho in [place]. Assessment & Plan (12/21/2022 3:22 PM EDT): Up to date w/ ophtho in [place]. Assessment & Plan (11/08/2022 10:34 AM EDT): She is comfortable with using the freestyle lory 2 sensor. She comes in with already using it. The set up is the same as the lory 14 day sensor which she was using. She is having issues with her pharmacy giving her the correct strips for the lory reader. She needs the precision rodolfo test strips and was give regular freestyle lite test strips. Sent in a new prescription for the precision rodolfo strips with documenting the incorrect ones were given previously, to please make sure correct ones are given. She is concerned that there is something wrong with her kidneys, as she had a urine test done with her PCP, and she was told that she has too much glucose in her urine. Do not have a copy of the results and the patient cannot access them. Will order a urine microalbumin/creatinine ratio to check levels. Will get back to her with the results, to discuss if any medication is needed. Continue to work on eating healthy and being active. To call or message with any issues managing her glucose levels. Assessment & Plan (09/16/2022 9:51 AM EDT): Control is very good based upon the patient's freestyle lory sensor download. No frequent or severe hypoglycemia. She is concerned when her glucose levels are going high immediately after eating- she will correct multiple times with additional insulin, and then occasionally will drop. Discussed that immediately following meals to not check her glucose levels because they are going to go up as her body digests her food. She should look at her glucose levels 2 hours after eating which will then give her a good idea how her insulin dosing was. Will not over using the insulin it should help prevent some of the lows she is experiencing. She asks about what victoza is. Reviewed risks and benefits of victoza and she doesn't want to try it. Will have her lower her levemir to help prevent the over night lows. Continue to work on eating healthy and being active. To call or message any issues managing her glucose levels. [facility] sent to [facility] to get the freestyle lory 2 reader and sensor covered. She will call the office to schedule a teaching appointment once she receives the sensors. Assessment & Plan (06/15/2022 3:44 PM EDT): Control reasonable. No frequent or severe hypoglycemia. No definite pattern to BG readings to guide rx adjustment. Advised to scan lory more often to capture more of the data. Given issues with CGM, may try to shift to Lory 2 @ next visit, she can call prior to have rx sent & SHARON can show her how to use @ visit, if covered. To be mindful to increase dose of prandial insulin when eating higher carbohydrate meals - often going high in the evening. Continue to work on eating healthy & keeping active, as able. To call or send in BG with problems with glycemic control. [facility] Follows with podiatry. Will do labs today.To call if hasn't heard from us within 1-2 weeks. BP under reasonable control. FPC current use of insulin 06/15/2022 Assessment & Plan (03/07/2024 12:48 PM EST): Will maintain insulin regimen Arrhythmia 09/26/2000 12/21/2022 CHF (congestive heart failure) 09/26/2000 0 12/21/2022 Asthma 12/14/1994 12/21/2022 High cholesterol 12/14/1994 12/21/2022 Type 2 diabetes mellitus with peripheral neuropa thy Assessment & Plan (06/21/2024 12:53 PM EDT): Control good. No frequent or severe hypoglycemia. Having some lows overnight. Advised to cut back on lantus to 3 units. States using 1:15 for carbs, but often giving 1:10 or even more. Advised to stick w/ 1:10 for carb. Can add 1:50 for correction & make further adjustments up/down based on BG/anticipated impact of food on BG levels & activity. Continue to work on eating healthy & keeping active. To call or send in BG with problems with glycemic control. Umalb/creat up to date, normal. Assessment & Plan (03/07/2024 1:02 PM EST): Control is reasonable based upon the patient's freestyle lory 2 sensor download. No severe hypoglycemia. She has been having frequent episodes of hypoglycemia, these are likely due to her not eatin throughout the day. She will correct and is fine. She has been getting better about eating more during the day which is helping with lessening the lows. Discussed how the disease is progressive and she may require more insulin than she used to with her meals with carbohydrates. Continue to work on eating healthy and being active. To call or message with any issues managing her glucose levels. Up to date with ophtho. Labs were done at [facility] will call for result Assessment & Plan (12/01/2023 12:51 PM EDT): Control good. No frequent or severe hypoglycemia. Having some overnight. Advised to cut back on lantus to 3 units. Tending to go up PC meals, advised to increase novolog by 1 unit, but to continue to make further adjustments up/down based on anticipated impact of food on BG levels. Continue to work on eating healthy & keeping active. To call or send in BG with problems with glycemic control. Foot & nail care good. Umalb/creat up to date, normal. BP under reasonable control. Assessment & Plan (05/17/2023 10:30 AM EST): Control is reasonable/good based upon the patient's freestyle lory 2 sensor download. No frequent or severe hypoglycemia. Some of the recent lows on her sensor were due to issues with the sensors. She will correct and then is fine. She questions the change from levemir to lantus. Discussed that this is because levemir is longer being made so we had to switch to lantus. Discussed how lantus works versus levemir. Her dosing will remain the same. She has been severely limiting her carbohydrates and is frustrated when she has them her glucose levels spike very high. Discussed that when she is not eating any or very little her body has a harder time handling them when she does eat them. She is going to start eating some more carbs and using the insulin to help cover. Discussed during her son's wedding to be careful with her carbs but do not stress and enjoy the day. Continue to work on eating healthy and being active. To call or message with any issues managing her glucose levels. Up to date with ophtho. Labs ordered today Assessment & Plan (12/21/2022 3:26 PM EDT): Control good. No frequent or severe hypoglycemia. Having some overnight. Advised to cut back levemir to 2 units & to double check w/ fingerstick when low without symptoms given potential for compression lows . Continue to work on eating healthy & keeping active. To call or send in BG with problems with glycemic control. Foot & nail care good. Umalb/creat up to date, normal. Discussed glucose in urine can occur after a spike in glucose & is not necessarily concerning given her overall good control. BP under reasonable control. Advised her to have insurance send us information on upcoming coverage changes for CGM. Will do PA as needed to keep her on CGM, ideally lory given simplicity & familiarity. 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 associated with type 2 diabetes mellitus (Primary Dx); Pseudophakia of both eyes; Glaucoma suspect of both eyes; Left posterior capsular opacification 10/16/2024 Refill [facility] [address] [place] [address] [place] [address] Kandace Lopez PA-C Medication Refill 09/21/2024 10:40 AM EDT Office Visit [facility] Endocrinology [address] [place] [address] [place] [address] Kandace Lopez PA-C Type 2 diabetes mellitus with retinopathy, with long-term current use of insulin, macular edema presence unspecified, unspecified laterality, unspecified retinopathy severity (Primary Dx) from Last 3 Months Social History Tobacco Use Types Packs/Day Years Used Date Smoking Tobacco: Light Smoker Cigarettes 0.3 1 Smokeless Tobacco: Never Tobacco Cessation:Ready to Q uit: Not Asked; Counseling Given: Not Answered Comments:0-2 cigarettes a day Alcohol Use Standard Drinks/Week Comments Yes 1 (1 standard drink = 0.6 oz pur e alcohol) Education Answer Date Recorded Are you interested in more education? Not on allegra e 07/23/2022 Are you concerned about learning? Not on file 07/23/2022 No 07/23/2022 No 07/23/2022 Digital Access Answer Date Recorded No 08/20/2022 No 08/20/2022 Reliable internet access at home? Not on file 08/20/2022 Device with a working camera? Not on file Intimate Partner Violence Answer Date R ecorded Are you denied basic needs s uch as food, clothing, or medical care? No 06/27/2024 In the past 12 months have y ou been in a relationship with a person who hurts, threatens, or tries to control you? No 06/27/2024 Are you denied basic needs s uch as food, clothing, or medical care? No 06/27/2024 In the past 12 months have y ou been in a relationship with a person who hurts, threatens, or tries to control you? No 06/27/2024 Comments No Sex and Gender Information Value Date Recorded Sex Assigned at Female 10/28/2021 1:35 PM EDT Legal Sex Female 12:09 PM EDT Gender Identity Female 10/28/2021 1:35 PM EDT Sexual Orientation Asexual 12/09/2021 11 :29 AM EDT Last Filed Vital Signs Vital Sign Reading Time Taken Comments Blood Pressure 120/58 09/21/2024 10:24 AM EDT Pulse 67 09/21/2024 10:24 AM EDT Temperature 36.3 C (97.3 F) 06/27/2024 8:57 PM EDT Respiratory Rate 18 06/27/2024 8:57 PM EDT Oxygen Saturation 97% 09/21/2024 10:24 AM EDT Inhaled Oxygen Concentration - - Weight 70.4 kg (155 lb 3.2 oz) 09/21/2024 10:24 AM EDT Height 156.2 cm (5' 1.5 ) 06/27/2024 4:57 PM EDT Body Mass Index 28.85 06/27/2024 4:57 PM EDT Plan of Treatment Upcoming Encounters Date Type Department Care Team (Late st Contact Info) Description 12/25/2024 9:40 AM EDT Office Visit [facility] [address] [place] [address] [place] [address] Kandace Lopez PA-C [address] [place] [phone] 03/14/2025 1:20 PM EST Office Visit [facility] [address] [address] Burton Howard MD, PhD [address] [place] [phone] [email or web address] 03/26/2025 11:20 AM EST Office Visit [facility] [address] [place] [address] Kandace Lopez PA-C [address] [place] [address] [email or web address] 06/21/2025 11:20 AM EDT Office Visit [facility] [address] [place] [address] [place] [address] Dahiana Isabel MD [address] [place] [phone] [email or web address] Health Maintenance Due Date Last Done Comments VALPROIC ACID (DEPAKENE) LEVEL 1958 DEPRESSION SCREENING 1970 HEPATITIS C SCREENING 1976 MAMMOGRAM 1998 COLOGUARD 10/15/2003 COLONOSCOPY 10/15/2003 COLORECTAL CANCER SCREENING 10/15/2003 FIT TEST 10/15/2003 FOBT 10/15/2003 SIGMOIDOSCOPY 10/15/2003 VIRTUAL COLONOSCOPY 10/15/2003 PNEUMOCOCCAL VACCINES (50+ years) (2 of 2 - PCV) 06/18/2007 06/17/2006 RSV VACCINE (1 - Risk 60-74 years 1-dose series) 2018 CREATININE LEVEL 05/13/2024 05/13/2023, , 09/15/2022, Additional history exists POTASSIUM LEVEL 05/13/2024 05/13/2023, 11/27, 09/15/2022, Additional history exists INFLUENZA VACCINE (#1) 2024 , 12/23/2021, 01/07/2021, Additional history exists COVID-19 VACCINE ( season) 2024 06/24/2022, 08/21/2020, 07/25/2020 SMOKING Hx and SMOKELESS TOBACCO SCREENING 03/15/2025 03/15/2024 HEMOGLOBIN A1C 03/22/2025 09/20/2024, 04/29, 08/31/2023, Additional history exists BLOOD PRESSURE 03/23/2025 09/21/2024 DIABETIC EYE EXAM 11/01/2025 11/01/2024, , 11/01/2024, Additional history exists Adult Td,Tdap Booster 11/01/2031 10/31/2021 ZOSTER VACCINES Completed 06/24/2022, 10/31/2021 OSTEOPOROSIS SCREENING INITIAL (ONE-TIME) Completed 06/12/2024 HEPATITIS A VACCINES Aged Out No long er eligible based on patient's age to complete this topic HIB VACCINES Aged Out No longer eligi ble based on patient's age to complete this topic MENINGOCOCCAL VACCINES (ACWY) Aged Out No longer eligible based on patient's age to complete this topic MENINGOCOCCAL VACCINES (B) Aged Out N o longer eligible based on patient's age to complete this topic Medical Devices Implanted Type Area Golf Club Head Former Device Identifier Shelf Expiration Date Model / Serial / Lot Lens Intraocular Tecnis [id number] 22.5d - [id number] Implanted:Qty: 1 on 12/17/2021 by Carey Bajwa MD at [facility] Left: Eye A M O SALES 04/24/2025 ZCB00 22.5D / [id number] / Procedures Procedure Name Priority Date/Time Associated Diagnosis Comments COLOR FUNDUS PHOTOGRAPHY - OU - BOTH EYES Routine 11/01/2024 2:07 PM EDT 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 associated with type 2 diabetes mellitus OCT, RETINA - OU - BOTH EYES Routine 11/01/2024 2:07 PM EDT 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 Left Eye Disease has: been stable. Notes OD: nerve cupped, sharp and perfused, scattered irh and exudates, temp sclerotic vessels, no neovascularization OS: nerve sharp and perfused, scattered irh and exudates, PVD, no NV Burton Howard MD, PhD OPHTHALMOLOGY IMAGING E dited Result - Final * OCT, RETINA - OU - BOTH EYES - [place] (11/01/2024 2:07 PM EDT) Narrative AYDE - 11/01/2024 2:50 PM EDT Right Eye Disease has: been improved. Left Eye Disease has: been stable. Notes OD stable exudates and trace intraretinal cysts temporally OS perifoveal cysts with preserved foveal contour, stable Burton Howard MD, PhD OPHTHALMOLOGY IMAGING E dited Result - Final AYDE * (ABNORMAL) Hemoglobin A1c (05/13/2023 1:02 PM EST) HEMOGLOBIN A1C 6.6(H) 4.3 - 5.8 % [facility] Blood 05/13/2023 1:02 PM EST 05/13/2023 1:06 PM EST Kandace Lopez PA-C LAB BLOOD ORDERABL ES Final Result Performing Organization Address City/[facility]/ZIP Co de Phone Number [address] [address] * (ABNORMAL) Basic metabolic panel (05/13/2023 1:02 PM EST) SODIUM 138 133 - 146 mmol/L [facility] CHLORIDE 100 96 - 108 mmol/L [facility] POTASSIUM 4.0 3.3 - 5.1 mmol/L [facility] CO2 29 21 - 35 mmol/L [facility] BUN 20(H) 6 - 19 mg/dL [facility] CREATININE 0.70 0.5 - 1.5 mg/dL [facility] GLUCOSE 199(H) 70 - 99 mg/dL [facility] CALCIUM 9.5 8.4 - 10.3 mg/dL [facility] EGFR 97 >59 mL/min/1.7 3m2 [facility] Comment:Estimated glomerular filtration rate calculated using the CKD-EPI refit equation. ANION GAP 13 10 - 20 mmol/L [facility] Blood 05/13/2023 1:02 PM EST 05/13/2023 1:06 PM EST us Kandace Lopez PA-C LAB BLOOD ORDERABL ES Final Result [facility] [address] [place] [address] from Last 3 Months or Most Recently Relevant to Health Maintenance Insurance [facility] MEDICARE REPLACEMENT MEDICARE PART A & B [facility] MEDICARE REPLACEMENT MEDICARE PART A & B [facility] MEDICARE REPLACEMENT MEDICARE PART A & B [facility] MEDICARE REPLACEMENT MEDICARE PART A & B [facility] MEDICARE REPLACEMENT MEDICARE PART A & B [facility] MEDICARE REPLACEMENT MEDICARE PART A & B [facility] MEDICARE REPLACEMENT MEDICARE PART A & [place] [address] [address] CARE MEDICARE REPLACEMENT MEDICARE PART A & B [facility] C[facility] MEDICARE REPLACEMENT MEDICARE PART A & B Care Teams Plumber Cub Relationship Specialty Start Date End Date Claudy Mc MD [address] [address] PCP - General Family Medicine 06/27/24 Juan Antonio Wilson MD [address] [address] Cardiology 12/10/21 Additional Source Comments The information contained in this document represents components of the legal health record. It is not the complete legal health record.[facility]
--- OUTSIDE RECORDS SUMMARY | 2024-12-18 13:20 | XMS_ITS | Encounter Summary ---
Author Organization [facility] Address [address] [place] [phone] Phone Care Team Providers Care Vice President Consulting Services Name Role Phone Ruddy Toscano MD Primary Care Provider + [phone] Juan Antonio Wilson MD Unavailable [phone] Emma Win DO Primary Care Provider [phone] Claudy Mc MD Primary Care Pr ovider Claudy Mc MD Primary Care Pr ovider Encounter Details Date Type Department Care Team (Late Contact Info) Description 12/17/2021 Procedure Pass [facility] DEPT [address] [place] [id number] Social History Tobacco Use Types Packs/Day Years Used Date Smoking Tobacco: Light Smoker Cigarettes 0.3 1 Smokeless Tobacco: Never Comments:0-2 cigarettes a da y Alcohol Use Standard Drinks/Week Comments Yes 1 (1 standard drink = 0.6 oz pur e alcohol) Comments No Sex and Gender Information Value Date Recorded Sex Assigned at Female 10/28/2021 1:35 PM EDT Legal Sex Female 12:09 PM EDT Gender Identity Female 10/28/2021 1:35 PM EDT Sexual Orientation Asexual 12/09/2021 11 :29 AM EDT documented as of this encounter Plan of Treatment Upcoming Encounters Date Type Department Care Team (Late Contact Info) Description 12/25/2024 9:40 AM EDT Office Visit [facility] [address] [place] [address] Kandace Lopez PA-C [address] [place] [address] 03/14/2025 1:20 PM EST Office Visit [facility] [address] [address] Burton Howard MD, PhD [address] [place] [address] [email or web address] 03/26/2025 11:20 AM EST Office Visit [facility] [address] [place] [address] Kandace Lopez PA-C [address] [place] [phone] 06/21/2025 11:20 AM EDT Office Visit [facility] [address] [place] [address] Dahiana Isabel MD [address] [place] [address] documented as of this encounter Visit Diagnoses Not on filedocumented in this encounter Care Teams Vice President Consulting Services Relationship Specialty Start Date End Date Ruddy Toscano MD [address] [place] [phone] PCP - General Gastroenterology 06/06/17 06/14/22 Emma Win DO [address] [place] [address] PCP - General Family Medicine 06/15/22 11/30/23 Claudy Mc MD [address] [place] [address] PCP - General Family Medicine 12/01/23 06/26/24 Claudy Mc MD [address] [place] [address] PCP - General Family Medicine 06/27/24 Juan Antonio Wilson MD [address] [place] [phone] Cardiology 12/10/21 documented as of this encounter Additional Source Comments The information contained in this document represents components of the legal health record. It is not the complete legal health record.[facility]
--- OUTSIDE RECORDS SUMMARY | 2024-12-18 13:20 | XMS_ITS | Encounter Summary ---
Author Organization [employer] Address [address] [place] [address] Care Team Providers Care Parking Officer Name Role Phone Claudy Mc MD Primary Care Pr ovider Encounter Details Date Type Department Care Team (Late Contact Info) Description 11/22/2024 Telephone Adult Medicine [address] [phone] Smith Goldsmith LPN Social History Tobacco Use Types Packs/Day Years Used Date Smoking Tobacco: Former Smokeless Tobacco: Never Alcohol Use Standard Drinks/Week Comments Yes 0 (1 standard drink = 0.6 oz pur e alcohol) Comments Unknown Sex and Gender Information Value Date Recorded Sex Assigned at Female 11/29/2024 8:55 AM EDT Legal Sex Female 10:43 AM EST Gender Identity Female 11/29/2024 8:55 AM EDT Sexual Orientation Straight 11/29/2024 8: 55 AM EDT documented as of this encounter Plan of Treatment Upcoming Encounters Date Type Department Care Team (Late Contact Info) Description 12/24/2024 11:00 AM EDT Appointment Radiology Department [address] [phone] 01/08/2025 10:30 AM EDT Office Visit Adult Medicine [address] [phone] Ct Ly PA [address] [place] [phone] 01/23/2025 1:00 PM EDT Office Visit Orthopedic Surgery - [place] [address] [facility] [address] [place] [phone] Kolton Renteria DPM [address] [facility] [address] [place] [phone] 06/03/2025 1:30 PM EDT Office Visit Pulmonology - [place] [address] [facility] [address] [place] [phone] Deandre Muñoz MD 175 [facility] [address] [place] [address] documented as of this encounter Visit Diagnoses Not on filedocumented in this encounter Care Teams Parking Officer Relationship Specialty Start Date End Date Claudy Mc MD [address] [place] [phone] PCP - General 07/26/23 documented as of this encounter
== END 2024-12-18 12:14 | disposition home or self-care (01) ==
LOC: HO.HCS 10:50
PROVIDERS: PCP Student in an Organized Health Care Education/Training Program; Visit Provider Internal Medicine
DX: I25.10 Atherosclerotic heart disease of native coronary artery without angina pectoris (principal); E11.8 Type 2 diabetes mellitus with unspecified complications; I10 Essential (primary) hypertension; R94.09 Abnormal results of other function studies of central nervous system; Z98.84 Bariatric surgery status
CPT/HCPCS: 93010; 99214; G2211

== ENCOUNTER → 2024-12-18 10:50 | Outpatient (BNVA) | payer OTHER, SELFPAY | PROVIDERS: PCP Student in an Organized Health Care Education/Training Program; Visit Provider Internal Medicine | DX: I25.10 Atherosclerotic heart disease of native coronary artery without angina pectoris (principal); I10 Essential (primary) hypertension; E11.8 Type 2 diabetes mellitus with unspecified complications; R94.09 Abnormal results of other function studies of central nervous system; Z98.84 Bariatric surgery status; R00.1 Bradycardia, unspecified | CPT/HCPCS: 93005; 99212 ==